=== PATIENT | female | born 1970 | race Caucasian/White ===

== ENCOUNTER 2019-05-17 16:04 | Emergency (ER) | payer OTHER, SELFPAY ==
--- NOTE | ~2019-05-17 | CT_ITS ---
EXAMINATION: CT abdomen pelvis w con DATE: 05/17/2019 18:38 INDICATION: Upper abdominal pain. Nausea. TECHNIQUE: Computed tomography (CT) of the abdomen and pelvis was performed with 100 mL Omnipaque 350 intravenous contrast. Automated exposure control and iterative reconstruction technique were employe d. The dose-length product was 1415.36 mGy-cm. COMPARISON: CT abdomen and pelvis 02/15/2014 FINDINGS: The visualized portions of the lung bases are clear without pneumonia or pleural effusion. The heart size is normal. No pericardial effusion. There is a moderate-sized sliding hiatal hernia. T here are cysts in the liver measuring up to 11 mm. There is mild splenomegaly measuring 13.5 cm, like ly secondary to obesity. The gallbladder, pancreas, and right adrenal gland are normal. There is a 10 mm mass in left adrenal gland measuring soft tissue attenuation. The kidneys are normal. There is a 5.1 cm subserosal fibroid of the uterus. There is diverticulosis of the colon without evidence of div erticulitis. There are no dilated loops of bowel. The appendix is normal. There are no pathologically enlarged lymph nodes. There is no free intraperitoneal fluid. There is thoracic dextroscoliosis and thoracolumbar levoscoliosis. There is mild thoracolumbar spondylosis. There is a chronic compression fracture of L2. IMPRESSION: 1. Moderate-sized sliding hiatal hernia. 2. 10 mm mass in left adrenal gland. In the absence of known malignancy, this finding is likely an ad enoma. Reviewed, dictated and finalized at location A. IMPRESSION: 1. Moderate-sized sliding hiatal hernia. 2. 10 mm mass in left adrenal gland. In the absence of known malignancy, this f inding is likely an adenoma.
[2019-05-17 16:06] VITALS: BP 123/72; PULSE 70; RESP 20; TEMP 36.3; O2SAT 100
[2019-05-17 16:24] LABS: Basophils Absolute Auto 0.1 K/mm3 (0.0-0.1); Basophils Percent Auto 1.1 % (0.2-1.2); Eosinophils Absolute Auto 0.4 K/mm3 (0-0.3); Hematocrit 49.9 % (37.0-47.0); Hemoglobin 16.1 g/dL (12.0-15.0); Immature Granulocyte Absolute 0.03 K/mm3 (0.00-0.031); Immature Granulocyte Percent A 0.3 % (0-0.5); Lymphocytes Absolute Auto 2.08 K/mm3 (0.9-3.2); Mean Corpuscular HGB Conc 32.3 g/dl (32-36); Mean Corpuscular Hemoglobin 29.2 pg (26-34); Mean Corpuscular Volume 90.4 fl (80-100); Mean Platelet Volume 11.7 fl (7.4-10.4); Monocytes Absolute Auto 0.7 K/mm3 (0.1-0.6); Monocytes Percent Auto 7.2 % (2.6-8.5); Neutrophils Absolute Auto 5.8 K/mm3 (1.3-6.7); Neutrophils Percent Auto 64.4 % (45.5-73.1); Platelet Count Result 159 k/mm3 (150-375); Red Blood Count 5.52 M/mm3 (4.2-5.4); Red Cell Distribution Width 14.4 % (11.5-14.5); White Blood Count 9.1 K/mm3 (4.5-10.0)
[2019-05-17 16:38] LABS: Alanine Aminotransferase 17 U/L (4-35); Alkaline Phosphatase 77 U/L (38-126); Aspartate Amino Transferase 32 U/L (14-36); Bilirubin,Total 0.5 mg/dL (0.2-1.3); Blood Urea Nitrogen 19 mg/dL (7-17); Calcium 8.9 mg/dL (8.4-10.2); Carbon Dioxide 25 mmol/L (22-30); Chloride 106 mmol/L (98-107); Estimated CRCL calculation 85 ml/min; Estimated Glomerular Filt Rate 60; Glucose 119 mg/dL (65-105); Lipase 78 U/L (23-300); Potassium 3.4 mmol/L (3.4-5.0); Sodium 140 mmol/L (137-145)
[2019-05-17 17:16] VITALS: BP 150/83; PULSE 85; RESP 16
[2019-05-17 17:37] LABS: Add Urine Microscopic? YES; Appearance Urine Cloudy (Clear); Bacteria Urine Trace /hpf; Bilirubin Urine Negative (Negative); Blood Urine 2+ (Negative); Color Urine Yellow (Yellow); Glucose Urine UA Negative (Negative); Ketones Urine 1+ mg/dL (Negative); Leukocyte Esterase Ur 1+ LEU/UL (Negative); Mucus Urine Rare /lpf; Nitrate Urine Negative (Negative); Protein Urine 1+ mg/dL (Negative); Squamous Epithelial Cell Urine Many /hpf (Few); Urobilinogen Urine Negative mg/dL (<2.0)
--- NOTE | 2019-05-17 18:08 | ED.ABDPAIN ---
HPI - Abdominal Pain General Chief Complaint: Abdominal Pain Stated Complaint: abdominal pain Time Seen by Provider: 05/17/19 17:47 Source: patient Mode of arrival: EMS Limitations: no limitations History of Present Illness HPI narrative: This is a 48 year old female that presents to the ER for upper abdominal pain x 2 hours. Reports sudden onset sharp right upper quadrant abdominal pain after she had eaten a grilled cheese sandwich. Associated with some nausea. Reports the pain has now subsided. Denies chest pain, shortness of breath, vomiting, diarrhea or dysuria. Related Data Home Medications Medication Instructions Recorded Confirmed cetirizine [Zyrtec] 10 mg PO DAILY 05/17/19 montelukast [Singulair] 10 mg PO DAILY 05/17/19 Allergies Allergy/AdvReac Type Severity Reaction Status Date / Time mold Allergy Unknown Verified 09/18/18 10:34 pollen extracts Allergy Unknown Verified 09/18/18 10:34 No Known Allergies Allergy Unverified 02/15/13 11:46 Review of Systems Review of Systems: Narrative: CONSTITUTIONAL: Denies fever CARDIOVASCULAR: Denies chest pain RESPIRATORY: Denies dyspnea. GASTROINTESTINAL: Reports abdominal pain, nausea. Denies vomiting, or diarrhea. GENITOURINARY: Denies dysuria or hematuria. All systems reviewed & are unremarkable except as noted in HPI and below PMFSH Past Medical History Medical History (Updated 05/17/19 @ 19:20 by Ethel Ramos PA-C) History of seasonal allergies Family History Family History (Updated 09/18/18 @ 10:35 by DOCTOR UNKNOWN) Father Diabetes mellitus Social History Social History Smoking status: Former smoker Smoking end date: 02/20/94 Alcohol intake: current Exam Narrative: Exam Narrative: GENERAL: Well-appearing, obese, and in no acute distress. HEAD: Normocephalic, atraumatic. EYES: EOMI. CHEST: Clear to auscultation. No respiratory distress. No wheezes rales or rhonchi HEART: Regular rate and rhythm. No murmur heard. Normal peripheral pulses. ABDOMEN: Soft, nondistended, normal active bowel sounds. Mild tenderness to palpation of the epigastrium and RUQ without guarding EXTREMITIES: Normal range of motion. No edema. SKIN: Warm, dry, no rash. NEURO: No focal deficits. Alert and oriented x3. PSYCH: Normal mood and affect Course Vital Signs Vital signs: Vital Signs Temperature 97.3 F L 05/17/19 16:06 Pulse Rate 70 05/17/19 16:06 Respiratory Rate 20 05/17/19 16:06 Blood Pressure 123/72 05/17/19 16:06 Pulse Oximetry 100 05/17/19 16:06 Temperature 97.3 F L 05/17/19 16:06 Pulse Rate 85 05/17/19 17:16 Respiratory Rate 16 05/17/19 17:16 Blood Pressure 150/83 H 05/17/19 17:16 Pulse Oximetry 100 05/17/19 16:06 MDM - Abdominal Pain MDM Narrative Medical decision making narrative: Patient presents the emergency department for right upper quadrant abdominal pain x2 hours. Pain had resolved upon arrival. She is afebrile and nontoxic-appearing. No leukocytosis on CBC. Patient is hemoconcentrated. Metabolic panel is without acute changes. UA with evidence dehydration, also with white blood cells and 1+ leukoesterase. UA with many squamous epithelial cells though and patient is asymptomatic. Her urine will go for culture. CT abdomen pelvis is without acute findings. It shows a 10 mm mass in the left adrenal gland which is likely an adenoma. Patient and family were updated on case findings. Patient was hydrated and given a dose of antiemetic in the ED with relief. She is to follow-up with primary care doctor. Patient was given warnings to return to the ER Lab Data Attestation: I reviewed the patient's lab results. Result diagrams: 05/17/19 16:17 05/17/19 16:17 Labs: Lab Results 05/17/19 05/17/19 05/17/19 Range/Units 16:17 16:17 17:21 WBC 9.1 (4.5-10.0) K/mm3 RBC 5.52 H (4.2-5.4) M/mm3 Hgb 16.1 H (12.0-15.0) g/dL Hct 49.9 H (37.0-47.0) %
[2019-05-17] MEDS: SODIUM CHLORIDE 0.9% IV 500 ML 999 ML IV CONT (18:53)
[2019-05-17] MEDS: ONDANSETRON INJ 4 MG/2 ML VIAL IV PUSH (19:41)
[2019-05-17 19:46] VITALS: BP 150/75; PULSE 88; RESP 20
== END 2019-05-17 19:46 | disposition home or self-care (01) ==
PROVIDERS: Emergency Medicine; Emergency Provider Emergency Medicine; PCP Nurse Practitioner Adult Health
DX: R10.11 Right upper quadrant pain (principal); D35.02 Benign neoplasm of left adrenal gland; K44.9 Diaphragmatic hernia without obstruction or gangrene
CPT/HCPCS: 36415; 74177; 80053; 81001; 81025; 83690; 85025; 87086; 87088; 96374; 99284; J2405; J7040; Q9967

== ENCOUNTER 2019-07-09 10:44 | Outpatient (CLI) | payer OTHER, SELFPAY ==
--- NOTE | ~2019-07-09 | MR_ITS ---
EXAMINATION: MR abdomen wo/w con INDICATION: Left adrenal mass, upper abdominal pain TECHNIQUE: Coronal SSFSE ARC, WATER:coronal LAVA-FLEX, Coronal 2D FIESTA FatSat, Axial SSFSE BH ARC, Axial 3D DualEcho BH, Axial SSFSE-IR, Axial DWI b=500, Axial 2D FIESTA FatSat, pre and dynamic postco ntrast Axial LAVA ARC, postcontrast Coronal In and Opposed phase LAVA FLEX COMPARISON: CT, 05/17/2019 CONTRAST: Multihance, 20 cc FINDINGS: There are trace pleural effusions. The heart size is normal. There is a moderate-sized slid ing hiatal hernia. Cysts of the liver measure up to 11 mm in the right hepatic lobe. Mild splenomegal y is again noted. The gallbladder, pancreas, kidneys, and right adrenal gland are normal. No left adr enal mass is identified. There are no dilated loops of bowel. There are no pathologically enlarged ab dominal lymph nodes. IMPRESSION: 1. Unremarkable left adrenal gland. 2. Moderate-sized sliding hiatal hernia. Reviewed, dictated and finalized at location A.
[2019-07-09 11:20] LABS: Estimated Glomerular Filt Rate 60
== END 2019-07-09 10:45 | disposition home or self-care (01) ==
LOC: ANHIMG 10:51
PROVIDERS: PCP Nurse Practitioner Adult Health; Visit Provider Nurse Practitioner Adult Health
DX: E27.8 Other specified disorders of adrenal gland (principal); K44.9 Diaphragmatic hernia without obstruction or gangrene
CPT/HCPCS: 36415; 74183; A9577

== ENCOUNTER 2020-01-09 17:18 | Outpatient (CLI) | payer OTHER, SELFPAY ==
--- NOTE | ~2020-01-09 | MM_ITS ---
EXAMINATION: MM screening little BI w que HISTORY: Screening mammogram TECHNIQUE: Craniocaudal and mediolateral oblique 3-D tomosynthesis images were obtained and synthetic 2-D images were generated. CAD analysis was submitted and interpreted. COMPARISON: 07/05/2018 bilateral digital screening mammogram BREAST PARENCHYMAL COMPOSITION: There are scattered areas of fibroglandular density. FINDINGS: Stable small circumscribed low-density opacity situated posteriorly in the outer mid right breast, most consistent with benign intramammary lymph node. There is no evidence of suspicious mass, calcification, or architectural distortion to suggest malignancy in either breast. There has been no suspicious interval change. IMPRESSION: 1. No mammographic evidence of malignancy. 2. Recommend routine screening mammography in one year. BI-RADS Category 2: Benign finding(s). Reviewed, dictated and finalized at location B. 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
== END 2020-01-09 17:19 | disposition home or self-care (01) ==
PROVIDERS: PCP Nurse Practitioner Adult Health; Visit Provider Obstetrics & Gynecology
DX: Z12.31 Encounter for screening mammogram for malignant neoplasm of breast (principal)
CPT/HCPCS: 77063; 77067

== ENCOUNTER 2020-05-05 16:59 | Outpatient (CLI) | payer BC, SELFPAY | END 2020-05-05 17:00 | disposition home or self-care (01) | LOC: ANHCOVIDVC 17:00 | PROVIDERS: PCP Obstetrics & Gynecology | DX: Z23 Encounter for immunization (principal) | CPT/HCPCS: 0001A; 91300 ==

== ENCOUNTER 2020-05-26 16:55 | Outpatient (CLI) | payer BC, SELFPAY | END 2020-05-26 16:56 | disposition home or self-care (01) | LOC: ANHCOVIDVC 16:55 | PROVIDERS: PCP Obstetrics & Gynecology | DX: Z23 Encounter for immunization (principal) | CPT/HCPCS: 0002A; 91300 ==

== ENCOUNTER 2021-02-18 16:28 | Outpatient (CLI) | payer BC, SELFPAY ==
--- NOTE | ~2021-02-18 | MM_ITS ---
EXAMINATION: MM screening [facility] BI w que HISTORY: Screening mammogram TECHNIQUE: Craniocaudal and mediolateral oblique 3-D tomosynthesis images were obtained and synthetic 2-D images were generated. CAD analysis was submitted and interpreted. COMPARISON: 01/09/2020, 07/05/2018 BREAST PARENCHYMAL COMPOSITION: There are scattered areas of fibroglandular density. FINDINGS: There is no evidence of suspicious mass, calcification, or architectural distortion to sugg est malignancy in either breast. There has been no suspicious interval change. IMPRESSION: 1. No mammographic evidence of malignancy. 2. Recommend routine screening mammography in one year. BI-RADS Category 1: Negative Reviewed, dictated and finalized at location A. 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
== END 2021-02-18 16:29 | disposition home or self-care (01) ==
PROVIDERS: PCP Obstetrics & Gynecology; Visit Provider Obstetrics & Gynecology
DX: Z12.31 Encounter for screening mammogram for malignant neoplasm of breast (principal)
CPT/HCPCS: 77063; 77067

== ENCOUNTER 2022-05-25 15:06 | Outpatient (CLI) | payer BC, SELFPAY ==
--- NOTE | ~2022-05-25 | US_ITS ---
EXAMINATION: US pelvic complete w TV DATE: 05/25/2022 16:22 INDICATION: Benign neoplasm of connective and other soft tissue . TECHNIQUE: Multiple transabdominal and transvaginal sonographic images of the pelvis were obtained. COMPARISON: CT abdomen and pelvis 05/17/2019 FINDINGS: TRANSABDOMINAL ULTRASOUND: The uterus measures 10.2 x 6.7 x 7.4 cm. There is no free fluid in the pelvis. TRANSVAGINAL ULTRASOUND: The endometrial complex measures 9 mm in thickness. There are 4.7 cm and 3.6 cm subserosal fibroids. There are nabothian cysts in the cervix. The ovaries are not visualized. IMPRESSION: 1. Uterine fibroids. 2. Ovaries not visualized. Reviewed, dictated and finalized at location A.
--- NOTE | ~2022-05-25 | US_ITS ---
EXAMINATION: US thyroid DATE: 05/25/2022 16:22 INDICATION: Nontoxic goiter TECHNIQUE: Multiple ultrasound images of the thyroid were obtained. COMPARISON: None. FINDINGS: The right thyroid lobe measures 6.1 x 2.3 x 2.0 cm. The left thyroid lobe measures 5.0 x 1.9 x 2.7 c m. 1.8 cm wider than tall solid hypoechoic nodule with smooth margins and without echogenic foci at the inferior right thyroid (TI-RADS 4, moderately suspicious , FNA if >=1.5 cm, annual followup is >= 1 cm). There are additional wider than tall predominately isoechoic masses with with smooth margins a nd without echogenic foci (TI-RADS 3, mildly suspicious , FNA if >=2.5 cm, annual followup is >=1.5 c m) measuring 2.7 cm in the inferior left thyroid lobe, 1.6 cm in the mid left thyroid and 1.4 cm in t he mid right thyroid. There is heterogeneous echogenicity with coarsened echotexture throughout the r emainder of the thyroid with a few additional scattered subcentimeter nodules. IMPRESSION: 1. Multinodular goiter. Recommend ultrasound-guided biopsy of the 1.8 cm TI RADS 4 right thyroid nodu le and the largest 2.7 cm TI RADS 3 left thyroid nodule. Reviewed, dictated and finalized at location A. IMPRESSION: 1. Multinodular goiter. Recommend ultrasound-guided biopsy of the 1.8 cm TI RAD S 4 right thyroid nodule and the largest 2.7 cm TI RADS 3 left thyroid nodule.
== END 2022-05-25 15:07 | disposition home or self-care (01) ==
LOC: ANHIMG 15:15
PROVIDERS: PCP Physician Assistant; Visit Provider Registered Nurse
DX: E06.9 Thyroiditis, unspecified (principal); D25.9 Leiomyoma of uterus, unspecified; E04.2 Nontoxic multinodular goiter
CPT/HCPCS: 76536; 76830; 76856

== ENCOUNTER 2022-07-16 07:13 | Outpatient (CLI) | payer BC, SELFPAY ==
[2022-07-16 08:42] LABS: Cholesterol 172 mg/dL (0-200); HDL Direct 40 mg/dL; Triglycerides 92 mg/dL (<150)
[2022-07-16 08:53] LABS: LDL Cholesterol Direct 106 mg/dL
[2022-07-16 09:25] LABS: Free T4 Free Thyroxine 1.38 ng/mL (0.78-2.19)
[2022-07-22 04:45] LABS: Thyroid Peroxidase Antibodies 227 IU/mL (<9)
[2022-07-22 14:25] LABS: Thyroid Stimulating Immunoglob <89 % baseline (<140)
[2022-07-23 18:26] LABS: Thyrotropin Receptor Antibody <1.00 IU/L (<=2.00)
== END 2022-07-16 07:14 | disposition home or self-care (01) ==
LOC: ANHLAB 07:15
PROVIDERS: PCP Physician Assistant; Visit Provider Internal Medicine
DX: E04.2 Nontoxic multinodular goiter (principal); E66.9 Obesity, unspecified
CPT/HCPCS: 36415; 80061; 83519; 84439; 84443; 84445; 86376

== ENCOUNTER 2022-07-19 16:48 | Outpatient (CLI) | payer BC, SELFPAY | END 2022-07-19 16:49 | disposition home or self-care (01) | LOC: ANHLAB 16:50 | PROVIDERS: PCP Physician Assistant; Visit Provider Physician Assistant | DX: E04.2 Nontoxic multinodular goiter (principal); E66.9 Obesity, unspecified | CPT/HCPCS: 82530 ==

== ENCOUNTER 2022-07-20 16:44 | Outpatient (CLI) | payer BC, SELFPAY ==
--- NOTE | ~2022-07-20 | MM_ITS ---
EXAMINATION: MM screening little BI w que HISTORY: Screening mammogram TECHNIQUE: Craniocaudal and mediolateral oblique 3-D tomosynthesis images were obtained and synthetic 2-D images were generated. CAD analysis was submitted and interpreted. COMPARISON: 02/18/2021, 01/09/2020, 07/05/2018 bilateral screening mammogram examinations BREAST PARENCHYMAL COMPOSITION: There are scattered areas of fibroglandular density. FINDINGS: There is no evidence of suspicious mass, calcification, or architectural distortion to sugg est malignancy in either breast. There has been no suspicious interval change. IMPRESSION: 1. No mammographic evidence of malignancy. 2. Recommend routine screening mammography in one year. BI-RADS Category 1: Negative Reviewed, dictated and finalized at location A.
== END 2022-07-20 16:45 | disposition home or self-care (01) ==
LOC: ANHIMG 16:46
PROVIDERS: PCP Physician Assistant; Visit Provider Obstetrics & Gynecology
DX: Z12.31 Encounter for screening mammogram for malignant neoplasm of breast (principal)
CPT/HCPCS: 77063; 77067

== ENCOUNTER 2022-08-03 17:02 | Outpatient (CLI) | payer BC, SELFPAY ==
--- NOTE | ~2022-08-03 | US_ITS ---
EXAMINATION: 1. US FNA w image guidance 2. US FNA additional DATE: 08/03/22 INDICATION: Multinodular goiter. TECHNIQUE: The procedure and its benefits and risks were discussed with the patient. Risks specifically discusse d included bleeding. The patient verbalized understanding of the risks and agreed to proceed. The nec k was prepped and draped in the usual sterile manner. 1% lidocaine was used for local anesthesia. S ix passes were made with a 25G needle into the lesion in right thyroid lobe under ultrasound guidance . Six passes were made with a 25-gauge needle into the lesion in left thyroid lobe under ultrasound gerardo dance. There were no immediate complications. FINDINGS: Grayscale ultrasound images demonstrate needles advanced into a 1.8 cm nodule in right thyroid lobe f or biopsy. Grayscale ultrasound images demonstrate needles advanced into a 2.7 cm nodule in left thyr oid lobe for biopsy. IMPRESSION: 1. Ultrasound-guided fine needle aspiration of a right thyroid nodule. 2. Ultrasound-guided fine-needle aspiration of a left thyroid nodule. Reviewed, dictated and finalized at location A. IMPRESSION: 1. Ultrasound-guided fine needle aspiration of a right thyroid nodule. 2. Ultrasound-guided fine-needle aspiration of a left thyroid nodule.
== END 2022-08-03 17:03 | disposition home or self-care (01) ==
LOC: ANHIMG 17:04
PROVIDERS: PCP Physician Assistant; Visit Provider Internal Medicine
DX: E04.2 Nontoxic multinodular goiter (principal)
CPT/HCPCS: 10005; 10006; 88173; 88305

== ENCOUNTER 2022-08-25 16:37 | Outpatient (CLI) | payer BC, SELFPAY ==
--- NOTE | ~2022-08-25 | US_ITS ---
EXAMINATION: US soft tissue head and neck DATE: 08/25/2022 17:05 INDICATION: Cervical lymphadenopathy. TECHNIQUE: Multiple grayscale and Doppler ultrasound images of the neck were obtained. COMPARISON: None FINDINGS: There are no pathologically enlarged lymph nodes in the left or right sides of the neck. IMPRESSION: 1. No cervical lymphadenopathy. Reviewed, dictated and finalized at location A.
== END 2022-08-25 16:38 | disposition home or self-care (01) ==
PROVIDERS: PCP Physician Assistant; Visit Provider Internal Medicine
DX: E04.2 Nontoxic multinodular goiter (principal)
CPT/HCPCS: 76536

== ENCOUNTER 2022-11-11 12:37 | Outpatient (CLI) | payer BC, SELFPAY ==
--- NOTE | ~2022-11-11 | US_ITS ---
EXAMINATION: US FNA w image guidance DATE: 11/11/2022 14:50 INDICATION: Right thyroid nodule with prior nondiagnostic biopsy TECHNIQUE: A time-out was performed to verify the patient's name, date of , and procedure to be performed . The procedure and its benefits and risks were discussed with the patient. Risks specifically discus sed included bleeding and infection. The patient understood the risks and agreed to proceed. The neck was prepped and draped in the usual sterile manner. 4 mL 1% lidocaine was used for local anesthesia . 7 passes were made with a 25G needle into the lesion. Appropriate needle location was documented with continuous sonographic guidance. A sterile bandage was applied. There were no immediate compli cations. FINDINGS: Grayscale ultrasound images demonstrate biopsy needles advanced into a 1.6 x 1.6 x 0.9 cm hypoechoic mass at the inferior right thyroid. IMPRESSION: 1. Successful ultrasound-guided fine needle aspiration of the 1.6 cm TI RADS 4 right thyroid nodule with prior nondiagnostic biopsy. Reviewed, dictated and finalized at location A.
== END 2022-11-11 12:38 | disposition home or self-care (01) ==
PROVIDERS: PCP Physician Assistant; Visit Provider Internal Medicine
DX: E04.2 Nontoxic multinodular goiter (principal)
CPT/HCPCS: 10005; 88173; 88305

== ENCOUNTER 2023-05-12 11:59 | Outpatient (CLI) | payer BC, SELFPAY ==
[2023-05-12 13:36] LABS: Alanine Aminotransferase 17 U/L (6-35); Albumin Level 3.8 g/dL (3.5-5.1); Alkaline Phosphatase 70 U/L (38-126); Anion Gap 5 mmol/L (8-16); Aspartate Amino Transferase 26 U/L (14-36); Bilirubin,Total 0.3 mg/dL (0.2-1.3); Blood Urea Nitrogen 17 mg/dL (7-17); Calcium 8.8 mg/dL (8.4-10.2); Carbon Dioxide 25 mmol/L (22-30); Chloride 107 mmol/L (98-107); Estimated Glomerular Filt Rate 59; Glucose 86 mg/dL (65-110); Sodium 137 mmol/L (137-145)
[2023-05-12 15:17] LABS: Free T4 Free Thyroxine 1.09 ng/mL (0.78-2.19); Vitamin D 25 Hydroxy 50.6 ng/mL
[2023-05-12 17:40] LABS: Parathyroid Intact 61.9 pg/mL (7.5-53.5)
[2023-05-14 19:42] LABS: Ionized Calcium 4.8 mg/dL (4.7-5.5)
[2023-05-16 04:18] LABS: Thyroglobulin 0.1 ng/mL (2.8-40.9); Thyroglobulin Antibodies <1 IU/mL (<=1)
== END 2023-05-12 12:00 | disposition home or self-care (01) ==
LOC: ANHLAB 12:01
PROVIDERS: PCP Nurse Practitioner; Visit Provider Internal Medicine
DX: C73 Malignant neoplasm of thyroid gland (principal)
CPT/HCPCS: 36415; 80053; 82306; 82330; 83970; 84432; 84439; 84443; 86800

== ENCOUNTER 2023-05-20 15:55 | Emergency (ER) | payer BC, SELFPAY ==
--- NOTE | 2023-05-20 16:02 | ED.WOUNDLAC ---
HPI - Wound/Laceration General Chief Complaint: Wound/Laceration Stated Complaint: lt thumb laceration Time Seen by Provider: 05/20/23 16:06 Source: patient, RN notes reviewed and old records reviewed Mode of arrival: ambulatory Limitations: no limitations History of Present Illness HPI narrative: 52-year-old female presents to the [facility] with a laceration to her left thumb. States she was using a music box mechanic when she cut the radial aspect of her left thumb. Measures 2.5 cm. Bleeding is controlled. Unknown last Tdap. Full range of motion with sensation intact. Capillary refill under 2 seconds Related Data Home Medications Medication Instructions Recorded Confirmed budesonide-formoterol HFA 80 2 puff inhalation Q12H 12/24/20 12/24/20 mcg-4.5 mcg/actuation aerosol inhaler (Symbicort) fluoxetine 40 mg capsule (Prozac) 40 mg PO DAILY 12/24/20 12/24/20 albuterol sulfate 90 mcg/actuation 1 puff inhalation Q4H PRN 04/13/22 aerosol inhaler cetirizine 10 mg capsule (Zyrtec) 10 mg PO DAILY PRN 04/13/22 prednisone 20 mg tablet mg 05/20/23 05/20/23 Allergies Allergy/AdvReac Type Severity Reaction Status Date / Time mold Allergy Unknown Verified 05/20/23 16:09 pollen extracts Allergy Unknown Verified 05/20/23 16:09 Review of Systems Review of Systems: All systems reviewed & are unremarkable except as noted in HPI and below Constitutional: Constitutional: Reports no additional constitutional complaints Eyes: Eyes: Reports no additional eye complaints ENT: Reports system reviewed and no additional complaints, except as documented Cardiovascular: Cardiovascular: Reports no additional cardiovascular complaints, Denies chest pain and Denies dyspnea Respiratory: Respiratory: Reports no additional respiratory complaints, Denies chest congestion, Denies cough and Denies dyspnea Gastrointestinal: Gastrointestinal: Reports no additional gastrointestinal complaints, Denies abdominal pain, Denies nausea and Denies vomiting Musculoskeletal: Musculoskeletal: Reports no additional musculoskeletal complaints Integumentary/Breasts: Skin/Breast: Reports as per HPI and Reports wounds Neurologic: Reports system reviewed and no additional complaints, except as documented Psychiatric: Psychiatric: Reports no additional psychiatric complaints Allergic/Immunologic: Allergic/Immunologic: Reports no additional allergic/immunologic complaints PMFSH Past Medical History Medical History Adrenal mass, left Asthma Basal cell carcinoma on face Body mass index (BMI) greater than 40 (09/18/18) Diverticulosis Goiter History of diverticulitis History of scoliosis History of seasonal allergies History of uterine fibroid Hx of hiatal hernia Irregular periods Lumbar compression fracture Missed SK (seborrheic keratosis) Spondylosis Uterine fibroid Surgical History Surgical History History of facial surgery to remove carcinoma History of subtotal thyroidectomy Family History Family History Father Diabetes mellitus Social History Social History Smoking status: Former smoker Smoking end date: 02/20/94 Alcohol intake: current Alcohol use details: not often Substance use: never Substance use type: does not use Lack of Transportation: No Lack of Food: Never True Current Housing: I Have Housing Concerned About Future Housing: No Difficulty Paying Gas/Electric Bills: No Difficulty Paying for Meds: No Currently Unemployed: No Education: Associate Degree Difficulty w/ Childcare or Family Care: No Living arrangements: with family Additional living arrangements comments: Mother lives with her Occupation/Education: occupation Gender identity (if verbalized b
[2023-05-20 16:07] VITALS: BP 121/74; PULSE 94; RESP 18; TEMP 36.3; O2SAT 97
[2023-05-20] MEDS: LIDOCAINE HCL 1% LOCAL INJ 2 ML AMPUL 4 ML INFILTRATE (16:17)
[2023-05-20] MEDS: TETANUS,DIPHTHERIA,AC PERTUSSIS ADULT (0.5 ML) BOOSTRIX IM (16:18)
== END 2023-05-20 16:52 | disposition home or self-care (01) ==
PROVIDERS: Emergency Provider Nurse Practitioner; PCP Nurse Practitioner
DX: S61.012A Laceration without foreign body of left thumb without damage to nail, initial encounter (principal); W26.8XXA Contact with other sharp object(s), not elsewhere classified, initial encounter; Z23 Encounter for immunization; Z87.891 Personal history of nicotine dependence; J45.909 Unspecified asthma, uncomplicated; E04.9 Nontoxic goiter, unspecified; Z85.828 Personal history of other malignant neoplasm of skin
CPT/HCPCS: 12001; 90471; 90715; 99212; G0463

== ENCOUNTER 2023-10-19 16:49 | Outpatient (CLI) | payer BC, SELFPAY ==
--- NOTE | ~2023-10-19 | MM_ITS ---
EXAMINATION: MM screening [facility] BI w que HISTORY: Screening mammogram TECHNIQUE: Craniocaudal and mediolateral oblique 3-D tomosynthesis images were obtained and synthetic 2-D images were generated. CAD analysis was submitted and interpreted. COMPARISON: 07/20/2022, 02/18/2021, 01/09/2020 BREAST PARENCHYMAL COMPOSITION:Not Dense. There are scattered areas of fibroglandular density. FINDINGS: Stable left breast intramammary lymph nodes. No suspicious mass, calcification, or architec tural distortion are identified in either breast to suggest malignancy. There has been no suspicious interval change. IMPRESSION: No mammographic evidence of malignancy. Recommend routine screening mammography in one year. BI-RADS Category 2: Benign finding(s). Reviewed, dictated and finalized at [facility].
== END 2023-10-19 16:50 | disposition home or self-care (01) ==
LOC: ANHIMG 16:50
PROVIDERS: Visit Provider Obstetrics & Gynecology
DX: Z12.31 Encounter for screening mammogram for malignant neoplasm of breast (principal)
CPT/HCPCS: 77063; 77067

== ENCOUNTER 2024-03-06 08:09 | Emergency (ER) | payer BC, SELFPAY ==
[2024-03-06 08:25] VITALS: BP 121/76; PULSE 118; RESP 20; TEMP 36.1; O2SAT 98
[2024-03-06 08:30] LABS: EDSTREPNEGPOS1 Negative (Negative)
--- NOTE | 2024-03-06 08:54 | ED_ITS ---
HPI - General Adult General Chief complaint: Upper Respiratory Infection Stated complaint: drainage and sore throat Source: patient Mode of arrival: ambulatory Limitations: no limitations History of Present Illness HPI narrative: Patient presents for evaluation of sick symptoms. Symptom onset in the middle of January 2024. She initially had a cough and nasal drainage. She had a telemedicine visit and was given prednisone and doxycycline. Her symptoms improved. She now has recurrence of her symptoms, as well as a sore throat, chills, generalized body aches, nausea and vomiting. Most of her symptoms are mild however she is most concerned about her sore throat. She has taken tylenol and claritin for her symptoms. She does not smoke. Related Data Home Medications ?Medication ?Instructions ?Recorded ?Confirmed ?Last Taken ?Type albuterol sulfate 90 mcg/actuation 1 puff inhalation Q4H PRN 04/13/22 Unknown History aerosol inhaler cetirizine 10 mg capsule (Zyrtec) 10 mg PO DAILY PRN 04/13/22 Unknown History fluticasone propionate 50 1 inh inhalation Q12H 08/22/23 Unknown History mcg/actuation blister powder for inhalation Allergies Allergy/AdvReac Type Severity Reaction Status Date / Time mold Allergy Mild Hives Verified 03/06/24 08:17 pollen extracts Allergy Mild Hives Verified 03/06/24 08:17 Review of Systems Review of Systems: CONSTITUTIONAL: Reports chills. Denies fever or sweats. EYES: Denies visual changes, redness, or discharge. ENT: Reports sinus congestion, yellow nasal drainage, and sore throat CARDIOVASCULAR: Denies chest pain, palpitations, or edema. RESPIRATORY: Reports cough. Denies SOB GASTROINTESTINAL: Reports nausea and vomiting. Denies abdominal pain or diarrhea. GENITOURINARY: Denies dysuria or hematuria. SKIN: Denies rash or itching. MUSCULOSKELETAL: Reports generalized body aches NEUROLOGIC: Denies headache, numbness, dizziness, or weakness. PSYCHIATRIC: Denies anxiety or depression. [facility] Past Medical History Medical History Basal cell carcinoma on face SK (seborrheic keratosis) Irregular periods Body mass index (BMI) greater than 40 (09/18/18) Goiter Uterine fibroid Spondylosis History of scoliosis History of diverticulitis Lumbar compression fracture Adrenal mass, left Hx of hiatal hernia History of uterine fibroid Asthma Diverticulosis Missed History of seasonal allergies Surgical History Surgical History History of subtotal thyroidectomy History of facial surgery to remove carcinoma Family History Family History Father Diabetes mellitus Social History Social History Smoking status: Former smoker Smoking end date: 02/20/94 Alcohol intake: current Alcohol use details: not often Substance use: never Substance use type: does not use Lack of Transportation: No Lack of Food: Never True Current Housing: I Have Housing Concerned About Future Housing: No Difficulty Paying Gas/Electric Bills: No Difficulty Paying for Meds: No Currently Unemployed: No Education: Associate Degree Difficulty w/ Childcare or Family Care: No Living arrangements: with family Additional living arrangements comments: Mother lives with her Occupation/Education: occupation Gender identity (if verbalized by the patient): Female Sexual Orientation (if Verbalized by the Patient): Straight or Heterosexual Spiritual care concerns: No Exam Narrative: GENERAL: Well-appearing, well-nourished, and in no acute distress. HEAD: Normocephalic, atraumatic. EYES: PERRLA and EOMI. ENT: Thick yellow nasal drainage. Mucous membranes moist. Oropharynx without tonsillar hypertrophy exudate or other lesions. There is posterior pharyngeal erythema. Bilateral TMs pearly garcia nonbulging NECK: Supple. No adenopathy or masses. No carotid bruits or JVD CHEST: Clear to auscultation. No respiratory distress. No wheezes rales or rhonchi HEART: Regular rate and rhythm. No murmur heard. Normal peripheral pulses. ABDOMEN: Soft, nontender, nondistended, normal active bowel sounds. EXTREMITIES: Normal range of motion. No edema. SKIN: Warm, dry, no rash. NEURO: No focal deficits. Alert and oriented x3. PSYCH: Normal mood and affect. Course Course Emergency Course: This is a 53-year-old female who presented for evaluation of sick symptoms. Rapid strep negative. She meets criteria for bacterial sinusitis based upon duration of time in which she has symptomatic and mucopurulent nature of her discharge. Will dc with augmentin. Follow up with primary provider. Go to the ER for worsening symptoms. Pt in agreement with plan of care. Level of Care: Express Care Visit Vital Signs Vital signs: Vital Signs Temperature 36.1 C L 03/06/24 08:25 Pulse Rate 118 H 03/06/24 08:25 Respiratory Rate 20 03/06/24 08:25 Blood Pressure 121/76 03/06/24 08:25 Pulse Oximetry 98 03/06/24 08:25 Oxygen Delivery Room Air 03/06/24 08:25 Temperature 36.1 C L 03/06/24 08:25 Pulse Rate 118 H 03/06/24 08:25 Respiratory Rate 20 03/06/24 08:25 Blood Pressure 121/76 03/06/24 08:25 Pulse Oximetry 98 03/06/24 08:25 Oxygen Delivery Room Air 03/06/24 08:25 Medical Decision Making Vital Signs Vital Signs: Vital Signs Temperature 36.1 C L 03/06/24 08:25 Pulse Rate 118 H 03/06/24 08:25 Respiratory Rate 20 03/06/24 08:25 Blood Pressure 121/76 03/06/24 08:25 Pulse Oximetry 98 03/06/24 08:25 Oxygen Delivery Room Air 03/06/24 08:25 Temperature 36.1 C L 03/06/24 08:25 Pulse Rate 118 H 03/06/24 08:25 Respiratory Rate 20 03/06/24 08:25 Blood Pressure 121/76 03/06/24 08:25 Pulse Oximetry 98 03/06/24 08:25 Oxygen Delivery Room Air 03/06/24 08:25 Lab Data Labs: Lab Results 03/06/24 Range/Units 08:28 POC Grp A Strep Screen Negative (Negative) Discharge Plan Discharge Clinical Impression: Sinusitis Patient Disposition: Home, Self-Care Condition: Stable Instructions: Antibiotic Form, Sinusitis (ED) Patient Language: Andorran Prescriptions: New amoxicillin-pot clavulanate 875-125 mg tablet 1 tablet PO Q12H Qty: 20 0RF No Action albuterol sulfate 90 mcg/actuation HFA aerosol inhaler 1 puff inhalation Q4H PRN Zyrtec 10 mg capsule 10 mg PO DAILY PRN norethindrone (contraceptive) 0.35 mg tablet 0.35 mg PO DAILY Qty: 84 4RF fluticasone propionate 50 mcg/actuation blister with device 1 inh inhalation Q12H levothyroxine [Synthroid] 200 mcg tablet 200 mcg PO DAILY Qty: 90 3RF levothyroxine [Synthroid] 25 mcg tablet 25 mcg PO DAILY Qty: 90 3RF Follow-up/Referrals: Kami Mnaning [Other] Stand Alone Forms: Work/School Release IP Time of Disposition: 08:41
== END 2024-03-06 08:42 | disposition home or self-care (01) ==
PROVIDERS: Emergency Provider Nurse Practitioner
DX: J32.9 Chronic sinusitis, unspecified (principal); Z87.891 Personal history of nicotine dependence; J45.909 Unspecified asthma, uncomplicated; E04.9 Nontoxic goiter, unspecified; M41.9 Scoliosis, unspecified; Z85.828 Personal history of other malignant neoplasm of skin
CPT/HCPCS: 87081; 87880; 99213; G0463

== ENCOUNTER 2024-03-09 08:24 | Outpatient (CLI) | payer BC, SELFPAY ==
[2024-03-09 09:31] LABS: Basophils Absolute Auto 0.1 K/mm3 (0.0-0.1); Basophils Percent Auto 1.2 % (0.2-1.2); Eosinophils Absolute Auto 0.3 K/mm3 (0-0.3); Eosinophils Percent Auto 4.8 % (0-4.4); Hematocrit 40.9 % (37.0-47.0); Hemoglobin 12.2 g/dL (12.0-15.0); Immature Granulocyte Absolute 0.02 K/mm3 (0.00-0.031); Immature Granulocyte Percent A 0.3 % (0-0.5); Lymphocytes Absolute Auto 1.05 K/mm3 (0.9-3.2); Lymphocytes Percent Auto 16.3 % (18.3-44.2); Mean Corpuscular HGB Conc 29.8 g/dl (32-36); Mean Corpuscular Hemoglobin 24.3 pg (26-34); Mean Corpuscular Volume 81.3 fl (80-100); Mean Platelet Volume 10.4 fl (7.4-10.4); Monocytes Absolute Auto 0.4 K/mm3 (0.1-0.6); Monocytes Percent Auto 6.2 % (2.6-8.5); Neutrophils Absolute Auto 4.6 K/mm3 (1.3-6.7); Neutrophils Percent Auto 71.2 % (45.5-73.1); Platelet Count Result 338 k/mm3 (150-375); Red Blood Count 5.03 M/mm3 (4.2-5.4); Red Cell Distribution Width 15.9 % (11.5-14.5); White Blood Count 6.4 K/mm3 (4.5-10.0)
[2024-03-09 09:43] LABS: Iron 34 ug/dL (37-170)
[2024-03-09 09:47] LABS: Alanine Aminotransferase 10 U/L (6-35); Albumin Level 3.7 g/dL (3.5-5.1); Alkaline Phosphatase 71 U/L (38-126); Anion Gap 6 mmol/L (4-12); Aspartate Amino Transferase 18 U/L (14-36); Bilirubin,Total 0.6 mg/dL (0.2-1.3); Blood Urea Nitrogen 17 mg/dL (7-17); Calcium 8.4 mg/dL (8.4-10.2); Carbon Dioxide 29 mmol/L (22-30); Chloride 106 mmol/L (98-107); Cholesterol 167 mg/dL (0-200); Estimated Glomerular Filt Rate > 60; Glucose 88 mg/dL (65-110); HDL Direct 34 mg/dL; Potassium 4.2 mmol/L (3.4-5.0); Sodium 141 mmol/L (137-145); Triglycerides 93 mg/dL (<150)
[2024-03-09 09:57] LABS: LDL Cholesterol Direct 98 mg/dL
[2024-03-09 10:01] LABS: Free T4 Free Thyroxine 2.39 ng/dL (0.78-2.19); Percent Iron Saturation 9 % (20-50)
[2024-03-09 10:16] LABS: Thyroid Stimulating Hormone 0.633 uIU/mL (0.465-4.680)
[2024-03-09 10:19] LABS: Ferritin 6.56 ng/mL (11.1-264)
[2024-03-13 10:48] LABS: Thyroglobulin <0.1 ng/mL; Thyroglobulin Antibodies <1 IU/mL (< or = 1)
--- OUTSIDE RECORDS SUMMARY | 2024-03-14 08:36 | XMS_ITS | Clinical Summary ---
Author Organization [facility] Address [address] [place] [address] Care Team Providers Care Template Layout Worker Name Role Phone Kaye Pendleton PA-C Primary Care Provider [phone] Source Comments [facility],non-owned Affiliates and Associated Physician Practices is amultiple site organization consisting of ambulatory clinics and hospital sitesin [place], [place], [place] and [place]. This disclosure is being madepursuant to the Care Everywhere program and may not contain all information available regarding this patient. Last updated 17.[facility] Allergies No known active allergies Medications * Be aware that medications may not be up to date on this document. Alwaysverify current medications with the patient. Medication Sig Dispensed Refills Start Date End Date Status FLUoxetine (PROzac) 40 MG capsule Take 1 (one) capsule by mouth once daily 03/10/2022 Active fluticasone propionate (Flonase) 50 MCG/ACT nasal spray Bend 1 (one) spray into each nostril once daily 06/03/2022 Active norethindrone (Ortho Micronor; Nor-Qd; Carlie; Eulalia; Lucía-Be; Thi; Jolivette) 0.35 MG tablet Take 1 (one) tablet by mouth as directed 08/31/2022 Active ferrous sulfate 325 (65 FE) MG tablet Take 1 (one) tablet by mouth 2 times daily Active albuterol (Proventil;Ventolin) (2.5 MG/3ML) 0.083% nebulizer solution Inhale 2.5 (two and one-half) mg by mouth as directed Active ibuprofen (Motrin) 600 MG tabletIndications:Mu ltiple thyroid nodules Take 1 (one) tablet by mouth every 6 hours 20 tablet 03/17/2023 Active levothyroxine (Synthroid) 200 MCG tablet Take 1 (one) tablet by mouth daily before breakfast Active Synthroid 25 MCG tablet Take 1 (one) tablet by mouth once daily 08/22/2023 Active cetirizine (ZyrTEC) 10 MG tablet Take 1 (one) tablet by mouth once daily 07/06/2023 Active Active Problems Problem Noted Date Diagnosed Date Thyroid cancer 04/19/2023 Multiple thyroid nodules 09/16/2022 Immunizations Name Administration Dates Next Due COVID PFIZER 12+YR 30MCG/0.3mL 11/30/2022 Covid Coaxis primary monoval ent 12+ yr 0.3mL Purple cap 02/23/2021,05/26/2020,05/05/2020 FLU VACCINE QUAD IIV4 SPLIT 0.25 ML IM 01/04/2019 FLU VACCINE TRI IIV3 SPLIT I M (FLUVIRIN) 11/19/2013 HIB-PRP-OMP 3 DOSE 02/25/2019 INFLUENZA VACCINE 01/21/2022 INFLUENZA VACCINE, CELL CULT URE, QUADR. (FLUCELVAX QUADRIVALENT; 6MO+) (CCIIV4) 11/30/2022 INFLUENZA VACCINE, QUADR. (A FLURIA, FLUZONE QUADRIVALENT; 6MO+) (IIV4) 01/03/2019 INFLUENZA VACCINE, QUADR. (F LUZONE; FLULAVAL; FLUARIX; AFLURIA QUADRIVALENT; 6MO+), 0.5 ML (IIV4) 01/21/2022,01/21/2021,11/26/2019,2017 PNEUMOCOCCAL PPSV23 02/21/2019 PNEUMOCOCCAL PPV VACCINE 02/25/2019 [employer] BIVALENT 5Y-11Y 10MCG/0.2ML 01/21/2022 Family History Medical History Relation Name Comments Diabetes - Type 1 Father Other - Pulmonary/Lung Maternal Grandmother emphysema Thyroid Disease Maternal Grandmother Cancer Mother appendix Diabetes - Type 1 Paternal Great-Grandmother Relation Name Status Comments Father Maternal Grandmother Mother Alive Paternal Great-Grandmother Social History Tobacco Use Types Packs/Day Years Used Date Smoking Tobacco: Never Smokeless Tobacco: Never Tobacco Cessation:Counseling Given: Not Answered Alcohol Use Standard Drinks/Week Comments Yes 0 (1 standard drink = 0.6 oz pur e alcohol) occ AUDIT-C Answer Date Recorded Q1: How often do you have a drink containing alcohol? Never 03/16/2023 Q2: How many drinks containi ng alcohol do you have on a typical day when you are drinking? Patient does not drink Q3: How often do you have si x or more drinks on one occasion? Never 03/16/2023 Sex and Gender Information Value Date Recorded Sex Assigned at Not on file Gender Identity Not on file Sexual Orientation Not on file Last Filed Vital Signs Vital Sign Reading Time Taken Comments Blood Pressure 130/83 09/27/2023 3:16 PM CDT Pulse 77 09/27/2023 3:16 PM CDT Temperature 36.8 ??C (98.2 ??F) 03/17/2023 7:56 AM CS T Respiratory Rate 18 03/17/2023 7:56 AM ENVIRONMENTAL CONSERVATION OFFICER Oxygen Saturation 98% 09/27/2023 3:16 PM CDT Inhaled Oxygen Concentration - - Weight 149.2 kg (329 lb) 09/27/2023 3:16 PM CDT Height 172.7 cm (5' 8 ) 09/27/2023 3:16 PM CDT Body Mass Index 50.02 09/27/2023 3:16 PM CDT Plan of Treatment Upcoming Encounters Date Type Department Care Team (Late st Contact Info) Description 10/02/2024 12:45 PM CDT Office Visit [facility] - ENT [address] [place] [phone] Loki John MD [address] [place] [address] [place] [id number] Health Maintenance Due Date Last Done Comments COLOGUARD (AGES 45-75) - COLON CA SCREENING 1972 COLON MONITORING 1972 COLONOSCOPY - COLON CA SCREENING 1972 CT COLONOGRAPHY - COLON CA SCREENING 1972 Colorectal Cancer Screening 1972 FIT - COLON CA SCREENING 1972 FLEX SIG - COLON CA SCREENING 1972 LIPID TESTING 1972 MAMMOGRAM 1972 PAP SMEAR 1972 HIV SCREENING 10/18/1987 HEPATITIS C SCREENING 10/13/1990 DTAP/TDAP/TD VACCINES (1 - Tdap) 10/18/1991 HEPATITIS B VACCINE (1 of 3 - 19+ 3-dose series) 10/18/1991 PNEUMOCOCCAL VACCINE 50+ (2 of 2 - PCV) 2022 02/25/2019, 02/21/2019 ZOSTER VACCINE (1 of 2) 2022 COVID-19 VACCINE (6 - season) 2023 11/30/2022, 01/21/2022, 01/21/2022, Additional history exists INFLUENZA VACCINE (#1) 2023 3, 01/21/2022, 01/21/2022, Additional history exists DEPRESSION SCREENING 02/21/2024 SCREENING FOR DIABETES 03/06/2026 03/06/2023 HIB VACCINE Aged Out 02/25/2019 No longer eligi ble based on patient's age to complete this topic PNEUMOCOCCAL VACCINE Aged Out 02/25/2019, 02/21/19 20 No longer eligible based on patient's age to complete this topic HPV VACCINE Aged Out No longer eligi ble based on patient's age to complete this topic MENINGOCOCCAL (Group B) VACCINE Aged Out No longer eligible based on patient's age to complete this topic MENINGOCOCCAL VACCINE Aged Out No vasyl naga eligible based on patient's age to complete this topic Procedures Procedure Name Priority Date/Time Associated Diagnosis Comments BASIC METABOLIC PANEL (CALCIUM TOTAL) Routine 03/06/2023 12:41 PM ENVIRONMENTAL CONSERVATION OFFICER Pre-op evaluation from Last 3 Months or Most Recently Relevant to Health Maintenance Results * (ABNORMAL) BASIC METABOLIC PANEL (CALCIUM TOTAL) (03/06/2023 12:41 PM ENVIRONMENTAL CONSERVATION OFFICER) BUN 16 7 - 26 mg/dL 03/06/2023 1:27 PM ENVIRONMENTAL CONSERVATION OFFICER [facility] Creatinine 0.91 0.56 - 0.96 mg/dL 03/06/2023 1:27 PM ENVIRONMENTAL CONSERVATION OFFICER [facility] Sodium 140 136 - 145 mmol/L 03/06/2023 1:27 PM ENVIRONMENTAL CONSERVATION OFFICER [facility] Potassium 4.1 3.5 - 4.5 mmol/L 03/06/2023 1:27 PM [facility] Chloride 108(H) 98 - 107 mmol/L 03/06/2023 1:27 PM [facility] CO2 25 22 - 29 mmol/L 03/06/2023 1:27 PM [facility] Glucose 82 70 - 115 mg/dL 03/06/2023 1:27 PM [facility] Calcium 9.1 8.4 - 10.2 mg/dL 03/06/2023 1:27 PM [facility] Anion Gap 7 6 - 16 03/06/2023 1:27 PM [facility] BUN/Creatinine Ratio 18 7 - 23 03/06/2023 1:27 PM [facility] Osmolality Calculated 290 275 - 295 mOsm/kg 03/06/2023 1:27 PM [facility] eGFR by CKD-EPI 77(L) >=90 mL/min/1.7 3 m2 03/06/2023 1:27 PM [facility] Blood BLOOD SPECIMEN / Unknown Lab Venipuncture / Unknown 03/06/2023 12:41 PM ENVIRONMENTAL CONSERVATION OFFICER 03/06/2023 12:58 PM [facility] Divya Carter CLOTH CHECKER-FOREST LANDSCAPE ECOLOGY PROFESSOR LAB - PEE LANDRY ORDERABLES [facility] [address] [place] [address], [facility] [phone] from Last 3 Months or Most Recently Relevant to Health Maintenance Advance Directives * Full Code (Latest Code Status on File) Date Activated Date Inactivated Comments 03/16/2023 1:17 PM 03/17/2023 11:57 AM Care Teams Template Layout Worker Relationship Specialty Start Date End Date Kaye Pendleton PA-C [address] [place] [address] PCP - General Physician Dried Fruit Washer 09/08/22
--- OUTSIDE RECORDS SUMMARY | 2024-03-14 08:37 | XMS_ITS | Clinical Summary ---
Author Organization [facility] Address [address] [place] [id number] Care Team Providers Care Inspector Eyeglass Frames Name Role Phone Kami Manning NP Primary Care Provider [phone] Tika FUNG MD PhD, Russ Smith Unavailable Jaylen Donnelly MD Unavailable [phone] Allergies No known active allergies Medications FLUoxetine (PROzac) 40 mg capsule Take 1 capsule (40 mg total) by mouth daily 3 Active norethindrone (MICRONOR) 0.35 mg tablet Take 1 tablet (0.35 mg total) by mouth daily 3 Active fluticasone propion-salmete roL (ADVAIR DISKUS) 250-50 mcg/dose diskus inhaler Inhale 1 puff 2 (two) times a day Rinse mouth with water after use. Do not swallow. 1 each 5 4 Active Synthroid 200 mcg tablet 200 MCG ORALLY DAILY 4 Active albuterol HFA (PROVENTIL HFA,VENTOLIN HFA,PROAIR HFA) 90 mcg/actuation inhaler Inhale 2 puffs every 4 (four) hours as needed for wheezing 1 each 5 4 Active levothyroxine (SYNTHROID) 150 mcg tablet Take 1 tablet (150 mcg total) by mouth daily 4 03/08/19 25 Discontinue d(Alternate therapy) cetirizine (ZyrTEC) 10 mg tablet TAKE 1 TABLET BY MOUTH EVERY DAY 90 tablet 1 4 03/04/19 25 Discontinue d(Alternate therapy) doxycycline (doxycycline hyclate) 100 mg capsule Take 1 tablet/capsu le (100 mg total) by mouth 2 (two) times a day for 7 days 14 tablet/capsu le 4 02/13/20 24 Active Problems Problem Noted Date Diagnosed Date Routine medical exam 03/08/2024 Assessment & Plan (03/08/2024 8:37 AM JAVA DEVELOPER ARCHITECT): CBC, CMP, lipid panel ordered. Mammogram ordered. Patient to sign release form to obtain last Pap results from her ENGINEERING AND DEVELOPMENT DIRECTOR. Cologuard completed 08/2023 repeat in 3 years. Vaccinations: Due for COVID, Shingrix,and Flu vaccines. Repeat wellness exam in one year. Morbid obesity with BMI of 50.0-59.9, adult 02/20 Assessment & Plan (03/08/2024 8:39 AM JAVA DEVELOPER ARCHITECT): Chronic, improving. Patient to continue exercising daily and making diet changes, limiting fatty foods and processed foods. Follow up in 6 months. Papillary thyroid carcinoma 07/03/2023 Mild intermittent asthma without complication Assessment & Plan (03/08/2024 8:37 AM JAVA DEVELOPER ARCHITECT): Chronic, controlled. Patient to restart Symbicort BID and continue albuterol inhaler PRN. Follow up in 6 months. Assessment & Plan (05/04/2023 4:52 PM CDT): Chronic, controlled. Patient to restart Symbicort BID and continue albuterol inhaler PRN. Follow up in 6 months. Anxiety and depression 05/04/2023 Assessment & Plan (03/08/2024 8:33 AM JAVA DEVELOPER ARCHITECT): Chronic, controlled. Patient to continue on fluoxetine 40 mg daily. Follow up in 6 months. Assessment & Plan (05/04/2023 4:40 PM CDT): Chronic, controlled. Patient to continue on fluoxetine 40 mg daily. Follow up in 6 months. Acquired hypothyroidism 05/04/2023 Assessment & Plan (03/08/2024 8:34 AM JAVA DEVELOPER ARCHITECT): Chronic, patient following with Dr. Allison endocrinology. Currently taking Synthroid 200 mcg daily. Assessment & Plan (05/04/2023 4:40 PM CDT): Chronic, improving patient following with Dr. Allison endocrinology. Currently taking levothyroxine 150 mcg daily. History of thyroid cancer 05/04/2023 Assessment & Plan (03/08/2024 8:32 AM JAVA DEVELOPER ARCHITECT): Thyroidectomy completed in 02/2023. Currently following with Dr. Alvaro MCRAE. Assessment & Plan (05/04/2023 4:56 PM CDT): Thyroidectomy completed in 02/2023. Currently following with Dr. Alvaro MCRAE. History of skin cancer 05/04/2023 Overview (05/04/2023): History of basal cell of left cheek. Patient currently following with [facility] for yearly skin checks. Assessment & Plan (03/08/2024 8:33 AM JAVA DEVELOPER ARCHITECT): History of basal cell of left cheek. Patient currently following with [facility] for yearly skin checks. Assessment & Plan (05/04/2023 4:55 PM CDT): History of basal cell of left cheek. Patient currently following with [facility] for yearly skin checks. Iron deficiency anemia 05/04/2023 Assessment & Plan (03/08/2024 8:38 AM JAVA DEVELOPER ARCHITECT): Chronic, stable patient unable to tolerate oral supplements. Patient to have CBC, iron profile, and ferratin level redrawn. Follow up in 6 months. Assessment & Plan (05/04/2023 4:54 PM CDT): Chronic, stable patient unable to tolerate oral supplements. Patient to have CBC, iron profile, and ferratin level redrawn in 2 months. Encounters Date Type Department Care Team Description 03/04/2024 4:30 PM JAVA DEVELOPER ARCHITECT Office Visit [facility] [address] [facility] [address] [place] [address] aKmi Manning, CHRISTOPHER Routine medical exam (Primary Dx); Iron deficiency anemia, unspecified iron deficiency anemia type; Acquired hypothyroidism; Anxiety and depression; History of skin cancer; History of thyroid cancer; Mild intermittent asthma without complication; Encounter for screening mammogram for malignant neoplasm of breast; Morbid obesity with BMI of 50.0-59.9, adult (HCC) 02/06/2024 5:10 AM JAVA DEVELOPER ARCHITECT E-Visit [facility] [address] [place] [phone] Mackenzie Boo NP Your Medications 02/06/2024 Patient Self-Triage [facility] Physicians [facility] [place] [address] Mychart, Generic Provider from Last 3 Months Immunizations Name Administration Dates Next Due COVID-19 mRNA (FunnelFire) 0.3 m L (30 mcg) vaccine (12 years and up) 12/08/2023,11/30/2022 Hib (PRP-OMP) 02/25/2019 Influenza, Quadrivalent, Subha l Culture-based MDCK, Preservative Free, Antibiotic Free, Intramuscular 11/30/2022 Influenza, Quadrivalent, Spl it, Intramuscular 01/03/2019 Influenza, Quadrivalent, Spl it, Preservative Free, Intramuscular 01/21/2022,01/21/2021,11/26/2019,12/11 Influenza, Trivalent, IM (MDV) 11/19/2013 Influenza, Trivalent, Preser vative Free, Intramuscular 12/08/2023 Influenza, Unspecified 01/21/2022 Pfizer Sars-Cov-2 Bivalent V accination (12+ YRS) 01/21/2022 Pfizer Sars-Cov-2 Bivalent V accination (5-11 YRS) 01/21/2022 Pneumococcal Polysaccharide PPV23 02/25/2019,03/2019 Tdap 05/20/2023 Surgical History Surgery Date Site/Laterality Comments THYROID SURGERY Medical History Medical History Date Comments Cancer (CMS/HCC) (HCC) Thyroid disease Family History Medical History Relation Name Comments Diabetes Father Cancer Mother Relation Name Status Comments Father (Age 49) Mother Alive Social History Tobacco Use Types Packs/Day Years Used Date Smoking Tobacco: Never AUDIT-C Answer Date Recorded Q1: How often do you have a drink containing alc ohol? Monthly or less 05/04/2023 Average Number of Drinks Not on file 024 Frequency of Binge Drinking Not on file 04/20 PHQ-2 Answer Date Recorded PHQ-2 Total Score (If total score is 3 or more points, staff should administer the PHQ-9) 1 05/04/2023 Comments Unknown Sex and Gender Information Value Date Recorded Sex Assigned at Not on file Legal Sex Female 2:15 AM JAVA DEVELOPER ARCHITECT Gender Identity Not on file Sexual Orientation Not on file Obstetrics History Last Filed Vital Signs Vital Sign Reading Time Taken Comments Blood Pressure 124/84 03/04/2024 3:43 PM JAVA DEVELOPER ARCHITECT Pulse 97 03/04/2024 3:43 PM JAVA DEVELOPER ARCHITECT Temperature 36.6 ??C (97.8 ??F) 03/04/2024 3:43 PM CS T Respiratory Rate 20 03/04/2024 3:43 PM JAVA DEVELOPER ARCHITECT Oxygen Saturation 98% 03/04/2024 3:43 PM JAVA DEVELOPER ARCHITECT Inhaled Oxygen Concentration - - Weight 140.7 kg (310 lb 1.6 oz) 03/04/2024 3:43 PM JAVA DEVELOPER ARCHITECT Height 166.4 cm (5' 5.51 ) 03/04/2024 3:43 PM CS T Body Mass Index 50.8 03/04/2024 3:43 PM JAVA DEVELOPER ARCHITECT Plan of Treatment Health Maintenance Due Date Last Done Comments Cervical Cancer Screening 1972 Hepatitis C Screening 1972 Hepatitis B Screening 1990 Zoster Vaccine (1 of 2) 10/18/1991 Depression Screening 05/03/2024 05/04/2023 Breast Cancer Screening-Mammogram 12/18/2024 024 Regular Well Visit/Exam 18-64 03/04/2025 03/04/2024 DTaP/Tdap/Td Vaccine (2 - Td or Tdap) 05/19/2033 05/20/2023 Colon Cancer Screening-Colonoscopy 09/04/2033 09/05/2023 Pneumococcal vaccine <65 Discontinued 02/25/2019, 03/2019 Covid-19 Vaccine Discontinued 12/08/2023, 12/2022, 01/21/2022, Additional history exists Influenza Vaccine Completed 12/08/2023, , 01/21/2022, Additional history exists Insurance [employer] [place] [employer] [place] Care Teams Inspector Eyeglass Frames Relationship Specialty Start Date End Date Kami Manning OIL HEATER INSTALLER [address] [place] [id number] PCP - General Family Medicine 05/04/23 Russ Villela III, MD PhD [address] [place] [id number] Radiation Oncologist Radiation Oncology 07/06/23 Jaylen Donnelly MD [address] [address] Consulting Physician Endocrinology Diabetes & Metabolism 07/06/23
--- OUTSIDE RECORDS SUMMARY | 2024-03-14 08:37 | XMS_ITS | Patient Health Summary ---
Author Organization [facility] Address [address] [place] [address] Care Team Providers Care Assorter Name Role Phone Kaye Pendleton PA-C Primary Care Provider [phone] Note from [facility],non-owned Affiliates and Associated Physician Practices is amultiple site organization consisting of ambulatory clinics and hospital sitesin [place], [place], [place] and [place]. This disclosure is being madepursuant to the Care Everywhere program and may not contain all information available regarding this patient. Last updated 17.[facility] Allergies No known active allergies Medications * Be aware that medications may not be up to date on this document. Alwaysverify current medications with the patient. * FLUoxetine (PROzac) 40 MG capsule(Started 03/10/2022) Take 1 (one) capsule by mouth once daily * fluticasone propionate (Flonase) 50 MCG/ACT nasal spray(Started 06/03/2022) [place] 1 (one) spray into each nostril once daily * norethindrone (Ortho Micronor; Nor-Qd; Carlie; Eulalia; Lucía-Be; Thi; Jolivette) 0.35 MG tablet(Started 08/31/2022) Take 1 (one) tablet by mouth as directed * ferrous sulfate 325 (65 FE) MG tablet Take 1 (one) tablet by mouth 2 times daily * albuterol (Proventil;Ventolin) (2.5 MG/3ML) 0.083% nebulizer solution Inhale 2.5 (two and one-half) mg by mouth as directed * ibuprofen (Motrin) 600 MG tablet(Started 03/17/2023) Take 1 (one) tablet by mouth every 6 hours * levothyroxine (Synthroid) 200 MCG tablet Take 1 (one) tablet by mouth daily before breakfast * Synthroid 25 MCG tablet(Started 08/22/2023) Take 1 (one) tablet by mouth once daily * cetirizine (ZyrTEC) 10 MG tablet(Started 07/06/2023) Take 1 (one) tablet by mouth once daily Active Problems Problem Noted Date Diagnosed Date Thyroid cancer 04/19/2023 Multiple thyroid nodules 09/16/2022 Immunizations * COVID PFIZER 12+YR 30MCG/0.3mL(Given 11/30/2022) * Covid Pfizer primary monovalent 12+ yr 0.3mL Purple cap(Given 02/23/2021, 05/26/2020, 05/05/2020) * FLU VACCINE QUAD IIV4 SPLIT 0.25 ML IM(Given 01/04/2019) * FLU VACCINE TRI IIV3 SPLIT IM (FLUVIRIN)(Given 11/19/2013) * HIB-PRP-OMP 3 DOSE(Given 02/25/2019) * INFLUENZA VACCINE(Given 01/21/2022) * INFLUENZA VACCINE, CELL CULTURE, QUADR. (FLUCELVAX QUADRIVALENT; 6MO+) (CCIIV4)(Given 11/30/2022) * INFLUENZA VACCINE, QUADR. (AFLURIA, FLUZONE QUADRIVALENT; 6MO+) (IIV4)(Given 01/03/2019) * INFLUENZA VACCINE, QUADR. (FLUZONE; FLULAVAL; FLUARIX; AFLURIA QUADRIVALENT; 6MO+), 0.5 ML (IIV4)(Given 01/21/2022, 01/21/2021, 11/26/2019, 12/11/2017) * PNEUMOCOCCAL PPSV23(Given 02/21/2019) * PNEUMOCOCCAL PPV VACCINE(Given 02/25/2019) * covID PFIZER BIVALENT 5Y-11Y 10MCG/0.2ML(Given 01/21/2022) Social History Tobacco Use Types Packs/Day Years [...] T Respiratory Rate 18 03/17/2023 7:56 AM FOREST RESOURCE SPECIALIST Oxygen Saturation 98% 09/27/2023 3:16 PM CDT Inhaled Oxygen Concentration - - Weight 149.2 kg (329 lb) 09/27/2023 3:16 PM CDT Height 172.7 cm (5' 8 ) 09/27/2023 3:16 PM CDT Body Mass Index 50.02 09/27/2023 3:16 PM CDT Procedures * TSH(Performed 04/14/2023) Performed for Multiple thyroid nodules, H/O total thyroidectomy * T4 FREE(Performed 04/14/2023) Performed for Multiple thyroid nodules, H/O total thyroidectomy * CALCIUM BLOOD(Performed 03/16/2023) Performed for Multiple thyroid nodules * PTH POST-OP OR ONLY(Performed 03/16/2023) Performed for Multiple thyroid nodules * PATHOLOGY TISSUE(Performed 03/16/2023) Performed for Multiple thyroid nodules * IA THYROIDECTOMY(Performed 03/16/2023) Performed for Multiple thyroid nodules * ENDOTRACHEAL TUBE NOTE(Performed 03/16/2023) * TYPE + SCREEN PANEL(Performed 03/16/2023) Performed for Pre-op evaluation * HCG URINE QUALITATIVE - POCT (IP) INTERFACED(Performed 03/16/2023) * HCG URINE QUAL POCT NOTIFICATION(Performed 03/16/2023) Performed for Pre-op evaluation * TYPE + SCREEN PANEL(Performed 03/06/2023) Performed for Pre-op evaluation * CBC W AUTO DIFFERENTIAL(Performed 03/06/2023) Performed for Pre-op evaluation * BASIC METABOLIC PANEL (CALCIUM TOTAL)(Performed 03/06/2023) Performed for Pre-op evaluation * XR KNEE RIGHT 4VW OR MORE(Performed 08/23/2012) Performed for Sprain of right knee Results * (ABNORMAL) TSH (04/14/2023 12:17 PM FOREST RESOURCE SPECIALIST) Pathologist [facility] TSH 12.422(H) 0.350 - 4.940 uIU/mL 04/14/2023 1:23 PM FOREST RESOURCE SPECIALIST [facility] Blood BLOOD SPECIMEN / Unknown Lab Venipuncture / Unknown 04/14/2023 12:17 PM FOREST RESOURCE SPECIALIST 04/14/2023 12:38 PM FOREST RESOURCE SPECIALIST Loki John MD LAB - CHEMISTRY BEN FABIAN [facility] [address] [place] [address], [facility] [phone] * T4 FREE (04/14/2023 12:17 PM FOREST RESOURCE SPECIALIST) [facility] T4 Free 1.0 0.7 - 1.5 ng/dL 04/14/2023 1:23 PM [facility] Blood BLOOD SPECIMEN / Unknown Lab Venipuncture / Unknown 04/14/2023 12:17 PM FOREST RESOURCE SPECIALIST 04/14/2023 12:38 PM FOREST RESOURCE SPECIALIST Loki John MD LAB - CHEMISTRY BEN FABIAN [facility] [address] [place] [address], [place] [phone] * PTH POST-OP OR ONLY (03/16/2023 9:39 AM FOREST RESOURCE SPECIALIST) [facility] PTH Post-Operative 61.7 See Comment pg/mL 03/16/2023 10:34 AM FOREST RESOURCE SPECIALIST [facility] Comment:A decrease in cirula ting PTH of 50% or more, ten minutes post-resection, signals successful removal of the abnormally secreting parathyroid tissue. Blood BLOOD SPECIMEN / Unknown Venipuncture / Unknown 03/16/2023 9:39 AM FOREST RESOURCE SPECIALIST 03/16/2023 9:46 AM FOREST RESOURCE SPECIALIST Loki John MD LAB - CHEMISTRY BEN FABIAN Performing Organization Address [facility]/ZIP Co de Phone Number [address] [address], [facility] [phone] * CALCIUM BLOOD (03/16/2023 9:39 AM FOREST RESOURCE SPECIALIST) Calcium 8.7 8.4 - 10.2 mg/dL 03/16/2023 10:11 AM FOREST RESOURCE SPECIALIST [facility] Blood BLOOD SPECIMEN / Unknown Venipuncture / Unknown 03/16/2023 9:39 AM FOREST RESOURCE SPECIALIST 03/16/2023 9:46 AM FOREST RESOURCE SPECIALIST Loki John MD LAB - CHEMISTRY BEN FABIAN Performing Organization Address [facility] de Phone Number [address] [address], [facility] [phone] * PATHOLOGY TISSUE (03/16/2023 8:54 AM FOREST RESOURCE SPECIALIST) Case Report Surgical Pathology Report ? Case: [id number] ? Authorizing Provider: ??Loki John MD ? Collected: ? 03/16/2023 08:54 AM ? Ordering Location: ? [facility] ?Received: ?03/16/2023 11:04 AM ? Pathologist: ? Delores Hickey MD ? Specimen: ?Thyroid Total, Total Thyroidectomy; Stitch Right Superior ? 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 The encapsulated and follicular variant foci show invasion of the adjacent thyroid parenchyma; however, lymphvascular invasion is absent. Foci of biopsy site change are also noted as is prominent lymphocytic thyroiditis. 03/20/2023 3:25 PM [facility] Clinical History The patient is a 52-year-old woman with a multinodular thyroid with prior FNA showing indeterminate/atypica l findings and genetic testing showing 50% risk of malignancy. Operative procedure/findings: Total thyroidectomy; Bilateral thyroids with significant nodularity, removed completely. 03/20/2023 3:25 PM [facility] Gross Description The requisition and specimen(s) are identified with the patient's name, Vanda Hurt. Received in formalin, specimen A , is a 28.7 g total thyroidectomy consisting of a 5.87 x 3.5 x 1.8 cm right lobe, 5.2 x 3.5 x 2.5 cm left lobe and a 1.4 x 1.2 x 0.5 cm isthmus. The specimen is oriented with a stitch denoting right superior. The capsular surface is pink-cid, fibrous with multiple firm nodules apparent on the right and left anterior surface. The specimen is inked as follows: Right anterior-green, left anterior-blue, posterior-black. Sectioning shows multiple discrete nodules within both lobes: (1) Right superior pole white cid nodule 0.7 x 0.7 x 0.5 cm , (2) Right midpole nodule, 1.5 x 1.5 x 1.0 with pink cid colloidal cut surfaces, (3) Right lower pole nodule 1.5 x 1.1 x 0.4 cm with cid cut surfaces, (4) Left lower pole colloid cut surface nodule 1.4 x 1.0 x 0.7, and (5) Left midpole white cid fleshy nodule 2.0 x 1.9 x 1.5 cm. The surrounding thyroid parenchyma is red cid spongy with foci of white cid parenchyma. No calcifications are identified. Steel Welder sections are submitted as follows: A1-right upper pole nodule (1) A2/A3-Right mid pole nodule (2) A4/A5-right lower pole nodule (3) A6 through A8-left midpole fleshy nodule (5) A9/E91-Nwgz lower pole nodule (4). /CP 03/20/2023 3:25 PM [facility] Pathologist Location at [facility] 03/20/2023 3:25 PM [facility] Disclaimer The performance characteristics of all immunohistochemical and indirect immunofluorescence stains (if any) cited in this report were determined by the [facility] of [facility]. Some of these tests were developed by our own laboratory and have not been cleared or approved by the US Food and Drug Administration. The FDA does not require this test to go through premarket FDA review. These tests are used for clinical purposes. They should not be regarded as investigational or for research. This laboratory is certified under the Clinical Laboratory Improvement Amendments (CLIA) as qualified to perform high complexity clinical laboratory testing. This case has been personally reviewed and interpreted by the attending (teaching) pathologist. 03/20/2023 3:25 PM [facility] Synoptic Report THYROID GLAND THYROID GLAND - All Specimens 8th Edition - Protocol posted: 05/11/2022 SPECIMEN ?? Procedure: ?Total thyroidectomy TUMOR ?? Tumor Focality: ?Multifocal ?? Tumor Characteristics: ? Tumor Identifier: ?Left mid pole ? Tumor Site: ?Left lobe ? Tumor Size: ?Greatest Dimension (Centimeters): 2.0 cm ? Histologic Tumor Types and Subtypes: ? : ?Papillary carcinoma, encapsulated classic subtype ? Tumor Proliferative Activity: ? Mitotic Rate: ?Less than 3 mitoses per 2mm2 ? Tumor Necrosis: ?Not identified ? Angioinvasion (vascular invasion): ?Not identified ? Lymphatic Invasion: ?Not identified ? Extrathyroidal Extension: ?Not identified ? Margin Status: ?All margins negative for carcinoma REGIONAL LYMPH NODES ?? Regional Lymph Node Status: ? : ?All regional lymph nodes negative for tumor ? Number of Lymph Nodes Examined: ?1 ? Shaniqua Level(s) Examined: ?Level pTNM CLASSIFICATION (AJCC 8th Edition) ?? Reporting of pT, pN, and (when applicable) pM categories is based on information available to the pathologist at the time the report is issued. As per the AJCC (Chapter 1, 8th Ed.) it is the managing physician? s responsibility to establish the final pathologic stage based upon all pertinent information, including but potentially not limited to this pathology report. ?? pT Category: ?pT1b ?? T Suffix: ?(m) pN Category: ?pN0a ADDITIONAL FINDINGS Additional Findings: ?Follicular nodular disease (Thyroid follicular nodular disease) Additional Findings: ?Thyroiditis THYROID GLAND THYROID GLAND - All Specimens 8th Edition - Protocol posted: 05/11/2022 SPECIMEN ?? Procedure: ?Total thyroidectomy TUMOR ?? Tumor Focality: ?Multifocal ?? Tumor Characteristics: ? Tumor Identifier: ?Right inferior lobe ? Tumor Site: ?Right lobe ? Tumor Size: ?Greatest Dimension (Centimeters): 1.5 cm ? Histologic Tumor Types and Subtypes: ? : ?Papillary carcinoma, infiltrative follicular subtype ? Tumor Proliferative Activity: ? Mitotic Rate: ?Less than 3 mitoses per 2mm2 ? Tumor Necrosis: ?Not identified ? Angioinvasion (vascular invasion): ?Not identified ? Lymphatic Invasion: ?Not identified ? Extrathyroidal Extension: ?Not identified ? Margin Status: ?All margins negative for carcinoma REGIONAL LYMPH NODES ?? Regional Lymph Node Status: ? : ?All regional lymph nodes negative for tumor ? Number of Lymph Nodes Examined: ?1 ? Shaniqua Level(s) Examined: ?Level pTNM CLASSIFICATION (AJCC 8th Edition) ?? Reporting of pT, pN, and (when applicable) pM categories is based on information available to the pathologist at the time the report is issued. As per the AJCC (Chapter 1, 8th Ed.) it is the managing physician? s responsibility to establish the final pathologic stage based upon all pertinent information, including but potentially not limited to this pathology report. ?? pT Category: ?pT1b ?? T Suffix: ?(m) pN Category: ?pN0a ADDITIONAL FINDINGS Additional Findings: ?Follicular nodular disease (Thyroid follicular nodular disease) Additional Findings: ?Thyroiditis THYROID GLAND THYROID GLAND - All Specimens 8th Edition - Protocol posted: 05/11/2022 SPECIMEN ?? Procedure: ?Total thyroidectomy TUMOR ?? Tumor Focality: ?Multifocal ?? Tumor Characteristics: ? Tumor Identifier: ?Right upper lobe ? Tumor Site: ?Right lobe ? Tumor Size: ?Greatest Dimension (Centimeters): 0.7 cm ? Histologic Tumor Types and Subtypes: ? : ?Papillary carcinoma, Warthin-like subtype ? Tumor Proliferative Activity: ? Mitotic Rate: ?Less than 3 mitoses per 2mm2 ? Tumor Necrosis: ?Not identified ? Angioinvasion (vascular invasion): ?Not identified ? Lymphatic Invasion: ?Not identified ? Extrathyroidal Extension: ?Not identified ? Margin Status: ?All margins negative for carcinoma REGIONAL LYMPH NODES ?? Regional Lymph Node Status: ? : ?All regional lymph nodes negative for tumor ? Number of Lymph Nodes Examined: ?1 ? Shaniqua Level(s) Examined: ?Level pTNM CLASSIFICATION (AJCC 8th Edition) ?? Reporting of pT, pN, and (when applicable) pM categories is based on information available to the pathologist at the time the report is issued. As per the AJCC (Chapter 1, 8th Ed.) it is the managing physician? s responsibility to establish the final pathologic stage based upon all pertinent information, including but potentially not limited to this pathology report. ?? pT Category: ?pT1a ?? T Suffix: ?(m) pN Category: ?pN0a ADDITIONAL FINDINGS Additional Findings: ?Follicular nodular disease (Thyroid follicular nodular disease) Additional Findings: ?Thyroiditis 03/20/2023 3:25 PM FOREST RESOURCE SPECIALIST [facility] Embedded Images 03/20/2023 3:25 PM FOREST RESOURCE SPECIALIST [facility] Biopsy, Excision SPECIMEN FROM THYROID OBTAINED BY TOTAL THYROIDECTOMY / Unknown 03/16/2023 8:54 AM FOREST RESOURCE SPECIALIST 03/16/2023 11:04 AM FOREST RESOURCE SPECIALIST Comment:Pre-op diagnosis: Multiple thyroid nodules Loki John MD LAB - PATHOLOGY/CYTO LOGY ORDERABLES [facility] [address] [place] [address], [facility] [phone] * ETT LINE PERFORMABLE (03/16/2023 7:46 AM FOREST RESOURCE SPECIALIST) Narrative Mckenna Garcia Anes Asst - 03/16/2023 7:46 AM FOREST RESOURCE SPECIALIST Mckenna Garcia Anes Asst ? 03/16/2023 ??7:49 AM Endotracheal Tube Placement: ? Patient Location: OR. Intubation Event Date/Time: ??03/16/2023 7:35 AM Procedure: intubation ([id number]). Procedure Section: ?? Sedation: under general anesthesia. Indications for Airway Management: ??anesthesia Induction: standard IV Patient Position: ??supine Mask Ventilation: not attempted. Blade Type: Video Blade Size: 3 Laryngoscopy View: grade 1 (full cords) Intubation Adjuncts: stylet, cricoid pressure and video laryngoscope Tube: nerve integrity monitoring tube Placement: oral Tube type: cuff - inflated Tube Size (MM): 7 Cuff Inflated With: air Number of Attempts: 1. Placement Verified By: direct visualization, bilateral breath sounds, chest auscultation and CO2 monitor Tube secured with: ??adhesive tape. Dentition unchanged? ??Yes Difficult Airway? ??No. Procedure Start Time: 03/16/2023 7:35 AM. Staff Section ? Anesthesia Provider: Sorority Mother, Student Anesthesiology Sorority Mother Student Anesthesiology, Performed the procedure ? Provider #1: Asad Penny MD. ? Provider #2: Mckenna Garcia Anes Asst. Additional Comments: Atraumatic intubation by DRISS Mayer with lips, teeth, and tongue in pre-op condition. Eyes taped prior to intubation. . Asad Penny MD GENERAL ANESTHESIA O RDERABLES * TYPE + SCREEN PANEL (03/16/2023 6:04 AM FOREST RESOURCE SPECIALIST) Only the most recent of2 resultswithin the time period is included. Antibody Screen NEG 6:50 AM [facility] ABO Rh O POS 03/16/2023 6:50 AM [facility] Blood Bank BLOOD SPECIMEN / Unknown Venipuncture / Unknown 03/16/2023 6:04 AM FOREST RESOURCE SPECIALIST 03/16/2023 6:10 AM FOREST RESOURCE SPECIALIST Divya Carter RETAIL ANALYTICS MANAGER-MELT HOUSE SUPERVISOR LAB - BLO OD BANK ORDERABLES [facility] [address] [place] [address], [place] [phone] * HCG URINE QUALITATIVE - POCT (IP) INTERFACED (03/16/2023 5:47 AM FOREST RESOURCE SPECIALIST) HCG Qual Urine Negative Negative 03/16/2023 5:54 AM FOREST RESOURCE SPECIALIST [facility] Urine URINE / Unknown 03/16/2023 5 :47 AM FOREST RESOURCE SPECIALIST 03/16/2023 5:54 AM FOREST RESOURCE SPECIALIST Loki John MD LAB - POINT OF CARE ORDERABLES Performing Organization Address City/[facility]/ZIP Co de Phone Number [facility] [address] [place] [address], [place] [phone] * HCG URINE QUAL POCT NOTIFICATION (03/16/2023 5:43 AM FOREST RESOURCE SPECIALIST) Comment Notification Label Only - See Separate Report 03/16/2023 7:00 AM [facility] Urine URINE / Unknown 03/16/2023 5 :43 AM FOREST RESOURCE SPECIALIST 03/16/2023 5:43 AM FOREST RESOURCE SPECIALIST Divya Carter RETAIL ANALYTICS MANAGER-MELT HOUSE SUPERVISOR LAB - URI NALYSIS ORDERABLES Performing Organization Address City/[facility]/ZIP Co de Phone Number [address] [address], [place] [phone] * (ABNORMAL) CBC WITH DIFFERENTIAL (03/06/2023 12:41 PM FOREST RESOURCE SPECIALIST) WBC 7.4 4.0 - 10.7 x10E9/L 03/06/2023 1:07 PM [facility] RBC Count 4.79 3.90 - 5.20 x10E12/L 03/06/2023 1:07 PM [facility] Hemoglobin 10.4(L) 11.9 - 15.8 g/dL 03/06/2023 1:07 PM [facility] Hematocrit 34.6(L) 34.8 - 46.1 % 03/06/2023 1:07 PM [facility] MCV 72.2(L) 80.0 - 98.0 fL 03/06/2023 1:07 PM [facility] MCH 21.7(L) 26.7 - 33.6 pg 03/06/2023 1:07 PM [facility] MCHC 30.1(L) 31.7 - 36.3 g/dL 03/06/2023 1:07 PM [facility] RDW-CV 15.9(H) 11.3 - 14.8 % 03/06/2023 1:07 PM [facility] Platelet Count 360 150 - 420 x10E9/L 03/06/2023 1:07 PM [facility] MPV 10.8 7.8 - 11.4 fL 03/06/2023 1:07 PM [facility] Neutrophil % 72.4 41.0 - 74.0 % 03/06/2023 1:07 PM [facility] Lymphocyte % 16.7(L) 17.0 - 47.0 % 03/06/2023 1:07 PM [facility] Monocyte % 6.7 3.0 - 11.0 % 03/06/2023 1:07 PM [facility] Eosinophil % 3.2 0.0 - 7.0 % 03/06/2023 1:07 PM [facility] Basophil % 0.9 0.0 - 1.6 % 03/06/2023 1:07 PM [facility] Immature Granulocytes % 0.1 0.0 - 1.0 % 03/06/2023 1:07 PM [facility] Neutrophil Absolute 5.37 1.60 - 7.50 x10E9/L 03/06/2023 1:07 PM [facility] Lymphocyte Absolute 1.24 1.00 - 4.40 x10E9/L 03/06/2023 1:07 PM [facility] Monocyte Absolute 0.50 0.15 - 1.00 x10E9/L 03/06/2023 1:07 PM [facility] Eosinophil Absolute 0.24 0.00 - 0.60 x10E9/L 03/06/2023 1:07 PM [facility] Basophil Absolute 0.07 0.00 - 0.13 x10E9/L 03/06/2023 1:07 PM [facility] Blood BLOOD SPECIMEN / Unknown Lab Venipuncture / Unknown 03/06/2023 12:41 PM FOREST RESOURCE SPECIALIST 03/06/2023 12:58 PM FOREST RESOURCE SPECIALIST Divya Eppersonshivakasia RETAIL ANALYTICS MANAGER-MELT HOUSE SUPERVISOR LAB - HEM ATOLOGY ORDERABLES [facility] [address] [place] [address], [facility] [phone] * (ABNORMAL) BASIC METABOLIC PANEL (CALCIUM TOTAL) (03/06/2023 12:41 PM FOREST RESOURCE SPECIALIST) BUN 16 7 - 26 mg/dL 03/06/2023 1:27 PM [facility] Creatinine 0.91 0.56 - 0.96 mg/dL 03/06/2023 1:27 PM [facility] Sodium 140 136 - 145 mmol/L 03/06/2023 1:27 PM [facility] Potassium 4.1 3.5 - 4.5 mmol/L 03/06/2023 1:27 PM [facility] Chloride 108(H) 98 - 107 mmol/L 03/06/2023 1:27 PM [facility] CO2 25 22 - 29 mmol/L 03/06/2023 1:27 PM [facility] Glucose 82 70 - 115 mg/dL 03/06/2023 1:27 PM [facility] Calcium 9.1 8.4 - 10.2 mg/dL 03/06/2023 1:27 PM [facility] Anion Gap 7 6 - 16 03/06/2023 1:27 PM [facility] BUN/Creatinine Ratio 18 7 - 23 03/06/2023 1:27 PM [facility] Osmolality Calculated 290 275 - 295 mOsm/kg 03/06/2023 1:27 PM [facility] eGFR by CKD-EPI 77(L) >=90 mL/min/1.7 3 m2 03/06/2023 1:27 PM [facility] Blood BLOOD SPECIMEN / Unknown Lab Venipuncture / Unknown 03/06/2023 12:41 PM FOREST RESOURCE SPECIALIST 03/06/2023 12:58 PM FOREST RESOURCE SPECIALIST Divya Dcfaizakasia RETAIL ANALYTICS MANAGER-MELT HOUSE SUPERVISOR LAB - PEE LANDRY ORDERABLES [facility] [address] [place] [address], [facility] [phone] * XR KNEE 4+ VW RIGHT (08/23/2012 10:21 PM CDT) Anatomical Region Laterality Modality Lower Extremity Radiographic Bianka ging 08/24/2012 7:32 AM CDT Impressions 08/24/2012 7:32 AM CDT Unremarkable study. Narrative 08/24/2012 7:32 AM CDT Right knee multiple views. HISTORY: Knee pain. Views of the knee demonstrate no fracture or dislocation or lytic or blastic lesion. Procedure Note Tripp Church MD - 08/24/2012 Right knee multiple views. HISTORY: Knee pain. Views of the knee demonstrate no fracture or dislocation or lytic or blastic lesion. IMPRESSION Unremarkable study. Radha Jain MD DIAGNOSTIC IMAGI NG ORDERABLES Care Teams Assorter Relationship Specialty Start Date End Date Kaye Pendleton PA-C [address] [place] [address] PCP - General Physician Sorority Mother 09/08/22
--- OUTSIDE RECORDS SUMMARY | 2024-03-14 08:37 | XMS_ITS | Referral Summary ---
Author Organization [facility] Address [address] [place] [address] Care Team Providers Care Fountain Waitress/Waiter Name Role Phone Kaye Pendleton PA-C Primary Care Provider [phone] Source Comments [facility],non-owned Affiliates and Associated Physician Practices is amultiple site organization consisting of ambulatory clinics and hospital sitesin [place], [place], [place] and [place]. This disclosure is being madepursuant to the Care Everywhere program and may not contain all information available regarding this patient. Last updated 17.[facility] Allergies No known active allergies Medications * Be aware that medications may not be up to date on this document. Alwaysverify current medications with the patient. Medication Sig Dispensed Refills Start Date End Date Status FLUoxetine (PROzac) 40 MG capsule Take 1 (one) capsule by mouth once daily 03/10/2022 Active fluticasone propionate (Flonase) 50 MCG/ACT nasal spray Lucan 1 (one) spray into each nostril once [...] Due COVID PFIZER 12+YR 30MCG/0.3mL 11/30/2022 Covid SeaMicro primary monoval ent 12+ yr 0.3mL Purple [...] PNEUMOCOCCAL PPSV23 02/21/2019 PNEUMOCOCCAL PPV VACCINE 02/25/2019 covDot BIVALENT 5Y-11Y 10MCG/0.2ML 01/21/2022 Social History Tobacco Use Types Packs/Day Years [...] T Respiratory Rate 18 03/17/2023 7:56 AM SHERIFF OFFICER Oxygen Saturation 98% 09/27/2023 3:16 PM CDT Inhaled Oxygen Concentration - - Weight 149.2 kg (329 lb) 09/27/2023 3:16 PM CDT Height 172.7 cm (5' 8 ) 09/27/2023 3:16 PM CDT Body Mass Index 50.02 09/27/2023 3:16 PM CDT Plan of Treatment Upcoming Encounters Date Type Department Care Team (Late st Contact Info) Description 10/02/2024 12:45 PM CDT Office Visit [facility] - ENT [address] [place] [phone] Loki John MD [address] [place] [address] [place] [address] Procedures Procedure Name Priority Date/Time Associated Diagnosis Comments BASIC METABOLIC PANEL (CALCIUM TOTAL) Routine 03/06/2023 12:41 PM SHERIFF OFFICER Pre-op evaluation from Last 3 Months or Most Recently Relevant to Health Maintenance Results * (ABNORMAL) BASIC METABOLIC PANEL (CALCIUM TOTAL) (03/06/2023 12:41 PM SHERIFF OFFICER) BUN 16 7 - 26 mg/dL 03/06/2023 1:27 PM [facility] Creatinine 0.91 0.56 - 0.96 mg/dL 03/06/2023 1:27 PM [facility] Sodium 140 136 - 145 mmol/L 03/06/2023 1:27 PM [facility] Potassium 4.1 3.5 - 4.5 mmol/L 03/06/2023 1:27 PM [facility] Chloride 108(H) 98 - 107 mmol/L 03/06/2023 1:27 PM [facility] CO2 25 22 - 29 mmol/L 03/06/2023 1:27 PM [facility] Glucose 82 70 - 115 mg/dL 03/06/2023 1:27 PM [facility] Calcium 9.1 8.4 - 10.2 mg/dL 03/06/2023 1:27 PM [facility] Anion Gap 7 6 - 16 03/06/2023 1:27 PM [facility] BUN/Creatinine Ratio 18 7 - 23 03/06/2023 1:27 PM [facility] Osmolality Calculated 290 275 - 295 mOsm/kg 03/06/2023 1:27 PM [facility] eGFR by CKD-EPI 77(L) >=90 mL/min/1.7 3 m2 03/06/2023 1:27 PM [facility] Blood BLOOD SPECIMEN / Unknown Lab Venipuncture / Unknown 03/06/2023 12:41 PM SHERIFF OFFICER 03/06/2023 12:58 PM [facility] Divya Carter SMALL MACHINE BINDERY OPERATOR-CATERING DIRECTOR LAB - PEE LANDRY ORDERABLES [facility] [address] [place] [address], [facility] [phone] from Last 3 Months or Most Recently Relevant to Health Maintenance Advance Directives * Full Code (Latest Code Status on File) Date Activated Date Inactivated Comments 03/16/2023 1:17 PM 03/17/2023 11:57 AM Care Teams Fountain Waitress/Waiter Relationship Specialty Start Date End Date Kaye Pendleton PA-C [address] [place] [id number] PCP - General Physician Pet Sitting 09/08/22
--- OUTSIDE RECORDS SUMMARY | 2024-03-14 08:37 | XMS_ITS | Referral Summary ---
Author Organization [facility] Address [address] [place] [phone] Care Team Providers Care Extruding Press Operator Name Role Phone Kami Manning NP Primary Care Provider [phone] Tika FUNG MD PhD, Russ Smith Unavailable Jaylen Donnelly MD Unavailable [phone] Encounters Date Type Department Care Team Description 03/04/2024 4:30 PM IRON ERECTOR Office Visit [facility] Primary [facility] [address] [place] [phone] Kami Manning NP Routine medical exam (Primary Dx); Iron deficiency anemia, unspecified iron deficiency anemia type; Acquired hypothyroidism; Anxiety and depression; History of skin cancer; History of thyroid cancer; Mild intermittent asthma without complication; Encounter for screening mammogram for malignant neoplasm of breast; Morbid obesity with BMI of 50.0-59.9, adult (HCC) 02/06/2024 5:10 AM IRON ERECTOR E-Visit [facility] Virtual Care [address] [place] [phone] Mackenzie Boo NP Your Medications 02/06/2024 Patient Self-Triage [facility] Health[facility]/ Physicians [facility] [place] [address] Mychart, Generic Provider from Last 3 Months Allergies No known active allergies Medications FLUoxetine [...] 03/08/2024 Assessment & Plan (03/08/2024 8:37 AM IRON ERECTOR): CBC, CMP, lipid panel ordered. Mammogram ordered. Patient to sign release form to obtain last Pap results from her DELIVERY LEAD. Adolfo completed 08/2023 repeat in 3 years. Vaccinations: Due for COVID, Shingrix,and Flu vaccines. Repeat wellness exam in one year. Morbid obesity with BMI of 50.0-59.9, adult 02/20 Assessment & Plan (03/08/2024 8:39 AM IRON ERECTOR): Chronic, improving. Patient to continue exercising daily and making diet changes, limiting fatty foods and processed foods. Follow up in 6 months. Papillary thyroid carcinoma 07/03/2023 Mild intermittent asthma without complication Assessment & Plan (03/08/2024 8:37 AM IRON ERECTOR): Chronic, controlled. Patient to restart Symbicort BID and continue albuterol inhaler PRN. Follow up in 6 months. Assessment & Plan (05/04/2023 4:52 PM CDT): Chronic, controlled. Patient to restart Symbicort BID and continue albuterol inhaler PRN. Follow up in 6 months. Anxiety and depression 05/04/2023 Assessment & Plan (03/08/2024 8:33 AM IRON ERECTOR): Chronic, controlled. Patient to continue on fluoxetine 40 mg daily. Follow up in 6 months. Assessment & Plan (05/04/2023 4:40 PM CDT): Chronic, controlled. Patient to continue on fluoxetine 40 mg daily. Follow up in 6 months. Acquired hypothyroidism 05/04/2023 Assessment & Plan (03/08/2024 8:34 AM IRON ERECTOR): Chronic, patient following with Dr. Allison endocrinology. Currently taking Synthroid 200 mcg daily. Assessment & Plan (05/04/2023 4:40 PM CDT): Chronic, improving patient following with Dr. Allison endocrinology. Currently taking levothyroxine 150 mcg daily. History of thyroid cancer 05/04/2023 Assessment & Plan (03/08/2024 8:32 AM IRON ERECTOR): Thyroidectomy completed in 02/2023. Currently following with Dr. Alvaro MCRAE. Assessment & Plan (05/04/2023 4:56 PM CDT): Thyroidectomy completed in 02/2023. Currently following with Dr. Alvaro MCRAE. History of skin cancer 05/04/2023 Overview (05/04/2023): History of basal cell of left cheek. Patient currently following with [facility] for yearly skin checks. Assessment & Plan (03/08/2024 8:33 AM IRON ERECTOR): History of basal cell of left cheek. Patient currently following with [facility] for yearly skin checks. Assessment & Plan (05/04/2023 4:55 PM CDT): History of basal cell of left cheek. Patient currently following with [facility] for yearly skin checks. Iron deficiency anemia 05/04/2023 Assessment & Plan (03/08/2024 8:38 AM IRON ERECTOR): Chronic, stable patient unable to tolerate oral supplements. Patient to have CBC, iron profile, and ferratin level redrawn. Follow up in 6 months. Assessment & Plan (05/04/2023 4:54 PM CDT): Chronic, stable patient unable to tolerate oral supplements. Patient to have CBC, iron profile, and ferratin level redrawn in 2 months. Immunizations Name Administration Dates Next Due COVID-19 mRNA (NextVR) 0.3 m L (30 mcg) vaccine (12 [...] 01/21/2022 Pneumococcal Polysaccharide PPV23 02/25/2019,03/2019 Tdap 05/20/2023 Social History Tobacco Use Types Packs/Day Years [...] on file Legal Sex Female 2:15 AM IRON ERECTOR Gender Identity Not on file Sexual Orientation Not on file Last Filed Vital Signs Vital Sign Reading Time Taken Comments Blood Pressure 124/84 03/04/2024 3:43 PM IRON ERECTOR Pulse 97 03/04/2024 3:43 PM IRON ERECTOR Temperature 36.6 ??C (97.8 ??F) 03/04/2024 3:43 PM CS T Respiratory Rate 20 03/04/2024 3:43 PM IRON ERECTOR Oxygen Saturation 98% 03/04/2024 3:43 PM IRON ERECTOR Inhaled Oxygen Concentration - - Weight 140.7 kg (310 lb 1.6 oz) 03/04/2024 3:43 PM IRON ERECTOR Height 166.4 cm (5' 5.51 ) 03/04/2024 3:43 PM CS T Body Mass Index 50.8 03/04/2024 3:43 PM IRON ERECTOR Plan of Treatment Not on file Insurance * Guarantor: Vanda Hurt Account Type Relation to Patient Date of Phone Billing Address Personal/Family Self 1970 [address] [place] [address] [facility] Care Teams Extruding Press Operator Relationship Specialty Start Date End Date Kami Manning SEWING MACHINES SALESPERSON [address] [place] [id number] PCP - General Family Medicine 05/04/23 Russ Villela III, MD PhD [address] [place] [id number] Radiation Oncologist Radiation Oncology 07/06/23 Jaylen Donnelly MD [address] [place] [phone] Consulting Physician Endocrinology Diabetes & Metabolism 07/06/23
--- OUTSIDE RECORDS SUMMARY | 2024-03-14 08:37 | XMS_ITS | Encounter Summary ---
Author Organization [facility] Healthcare Address [address] [place] [address] Care Team Providers Care Brush Cleaner Name Role Phone Kami Manning NP Primary Care Provider [phone] Tika FUNG MD PhD, Russ Smith Unavailable Jaylen Donnelly MD Unavailable [phone] Encounter Details Date Type Department Care Team ([facility] st Contact Info) Description 05/15/2023 Telephone [facility] Medical Group Primary Care [address] [phone] Kami Manning NP [facility] [address] Social History Tobacco Use Types Packs/Day Years [...] on file Legal Sex Female 2:15 AM BINDING DYER Gender Identity Not on file Sexual Orientation Not on file documented as of this encounter Plan of Treatment Not on file documented as of this encounter Visit Diagnoses Not on filedocumented in this encounter Care Teams Brush Cleaner Relationship Specialty Start Date End Date Kami Manning NP [address] [place] [phone] PCP - General Family Medicine 05/04/23 Russ Villela III, MD PhD [address] [place] [address] [phone] Radiation Oncologist Radiation Oncology 07/06/23 Jaylen Donnelly MD [address] [place] [phone] Consulting Physician Endocrinology Diabetes & Metabolism 07/06/23 documented as of this encounter
--- OUTSIDE RECORDS SUMMARY | 2024-03-14 08:37 | XMS_ITS ---
Author Organization [facility] Address [address] [place] [phone] Care Team Providers Care Manufacturing Technology Analyst Name Role Phone Kami Manning NP Primary Care Provider [phone] Tika FUNG MD PhD, Russ Smith Unavailable Jaylen Donnelly MD Unavailable Active Problems Problem Noted Date Diagnosed Date Routine medical exam 03/08/2024 Assessment & Plan (03/08/2024 8:37 AM COMPENSATION MANAGER): CBC, CMP, lipid panel ordered. Mammogram ordered. Patient to sign release form to obtain last Pap results from her [facility]. Adolfo completed 08/2023 repeat in 3 years. Vaccinations: Due for COVID, Shingrix,and Flu vaccines. Repeat wellness exam in one year. Morbid obesity with BMI of 50.0-59.9, adult 02/20 Assessment & Plan (03/08/2024 8:39 AM COMPENSATION MANAGER): Chronic, improving. Patient to continue exercising daily and making diet changes, limiting fatty foods and processed foods. Follow up in 6 months. Papillary thyroid carcinoma 07/03/2023 Mild intermittent asthma without complication Assessment & Plan (03/08/2024 8:37 AM COMPENSATION MANAGER): Chronic, controlled. Patient to restart Symbicort BID and continue albuterol inhaler PRN. Follow up in 6 months. Assessment & Plan (05/04/2023 4:52 PM CDT): Chronic, controlled. Patient to restart Symbicort BID and continue albuterol inhaler PRN. Follow up in 6 months. Anxiety and depression 05/04/2023 Assessment & Plan (03/08/2024 8:33 AM COMPENSATION MANAGER): Chronic, controlled. Patient to continue on fluoxetine 40 mg daily. Follow up in 6 months. Assessment & Plan (05/04/2023 4:40 PM CDT): Chronic, controlled. Patient to continue on fluoxetine 40 mg daily. Follow up in 6 months. Acquired hypothyroidism 05/04/2023 Assessment & Plan (03/08/2024 8:34 AM COMPENSATION MANAGER): Chronic, patient following with Dr. Allison endocrinology. Currently taking Synthroid 200 mcg daily. Assessment & Plan (05/04/2023 4:40 PM CDT): Chronic, improving patient following with Dr. Allison endocrinology. Currently taking levothyroxine 150 mcg daily. History of thyroid cancer 05/04/2023 Assessment & Plan (03/08/2024 8:32 AM COMPENSATION MANAGER): Thyroidectomy completed in 02/2023. Currently following with Dr. Alvaro MCRAE. Assessment & Plan (05/04/2023 4:56 PM CDT): Thyroidectomy completed in 02/2023. Currently following with Dr. Alvaro MCRAE. History of skin cancer 05/04/2023 Overview (05/04/2023): History of basal cell of left cheek. Patient currently following with [facility] for yearly skin checks. Assessment & Plan (03/08/2024 8:33 AM COMPENSATION MANAGER): History of basal cell of left cheek. Patient currently following with [facility] for yearly skin checks. Assessment & Plan (05/04/2023 4:55 PM CDT): History of basal cell of left cheek. Patient currently following with [facility] for yearly skin checks. Iron deficiency anemia 05/04/2023 Assessment & Plan (03/08/2024 8:38 AM COMPENSATION MANAGER): Chronic, stable patient unable to tolerate oral supplements. Patient to have CBC, iron profile, and ferratin level redrawn. Follow up in 6 months. Assessment & Plan (05/04/2023 4:54 PM CDT): Chronic, stable patient unable to tolerate oral supplements. Patient to have CBC, iron profile, and ferratin level redrawn in 2 months. Current Oncology Plans No current plan information found. Past Plans No past plan information found. Radiation Treatments * Plan Last Treated On Elapsed Days Fractions Treated Prescribed Fraction Dose Prescribed Total Dose Thyroid1 06/30/2023 0 1 30 cGy 30 cGy Reference Point Last Treated On Elapsed Days Session Dose Total Dose Thyroid1 06/30/2023 0 30 cGy 30 cGy
== END 2024-03-09 08:25 | disposition home or self-care (01) ==
PROVIDERS: Visit Provider Internal Medicine
DX: C73 Malignant neoplasm of thyroid gland (principal); D50.9 Iron deficiency anemia, unspecified; Z00.00 Encounter for general adult medical examination without abnormal findings
CPT/HCPCS: 36415; 80053; 80061; 82728; 83540; 83550; 84432; 84439; 84443; 85025; 86800

== ENCOUNTER 2024-09-04 14:14 | Outpatient (CLI) | payer BC, SELFPAY ==
--- OUTSIDE RECORDS SUMMARY | 2024-09-04 14:21 | XMS_ITS | Clinical Summary ---
Author Organization [facility] at the Medical Office Building Address [address] [place] [address] Care Team Providers Care Fibreglass Laminator Name Role Phone Kami Manning NP Primary Care Provider [phone] Tika FUNG MD PhD, Russ Smith Unavailable Jaylen Donnelly MD Unavailable [phone] Loki John MD Unavailable [phone] Allergies No known active allergies Medications FLUoxetine [...] for wheezing 1 each 5 4 Active norethindrone (MICRONOR) 0.35 mg tablet Take 1 tablet (0.35 mg total) by mouth daily 3 08/23/19 25 Discontinu ed(Therapy completed) Active Problems Problem Noted Date Diagnosed Date Routine medical exam 03/08/2024 Assessment & Plan (03/08/2024 8:37 AM TANYARD WORKER): CBC, CMP, lipid panel ordered. Mammogram ordered. Patient to sign release form to obtain last Pap results from her TONAL REGULATOR. Adolfo completed 08/2023 repeat in 3 years. Vaccinations: Due for COVID, Shingrix,and Flu vaccines. Repeat wellness exam in one year. Morbid obesity with BMI of 50.0-59.9, adult 02/20 Assessment & Plan (03/08/2024 8:39 AM TANYARD WORKER): Chronic, improving. Patient to continue exercising daily and making diet changes, limiting fatty foods and processed foods. Follow up in 6 months. Papillary thyroid carcinoma 07/03/2023 Mild intermittent asthma without complication Assessment & Plan (03/08/2024 8:37 AM TANYARD WORKER): Chronic, controlled. Patient to restart Symbicort BID and continue albuterol inhaler PRN. Follow up in 6 months. Assessment & Plan (05/04/2023 4:52 PM CDT): Chronic, controlled. Patient to restart Symbicort BID and continue albuterol inhaler PRN. Follow up in 6 months. Anxiety and depression 05/04/2023 Assessment & Plan (03/08/2024 8:33 AM TANYARD WORKER): Chronic, controlled. Patient to continue on fluoxetine 40 mg daily. Follow up in 6 months. Assessment & Plan (05/04/2023 4:40 PM CDT): Chronic, controlled. Patient to continue on fluoxetine 40 mg daily. Follow up in 6 months. Acquired hypothyroidism 05/04/2023 Assessment & Plan (03/08/2024 8:34 AM TANYARD WORKER): Chronic, patient following with Dr. Allison endocrinology. Currently taking Synthroid 200 mcg daily. Assessment & Plan (05/04/2023 4:40 PM CDT): Chronic, improving patient following with Dr. Allison endocrinology. Currently taking levothyroxine 150 mcg daily. History of thyroid cancer 05/04/2023 Assessment & Plan (03/08/2024 8:32 AM TANYARD WORKER): Thyroidectomy completed in 02/2023. Currently following with Dr. Alvaro MCRAE. Assessment & Plan (05/04/2023 4:56 PM CDT): Thyroidectomy completed in 02/2023. Currently following with Dr. Alvaro MCRAE. History of skin cancer 05/04/2023 Overview (05/04/2023): History of basal cell of left cheek. Patient currently following with [facility] for yearly skin checks. Assessment & Plan (03/08/2024 8:33 AM TANYARD WORKER): History of basal cell of left cheek. Patient currently following with [facility] for yearly skin checks. Assessment & Plan (05/04/2023 4:55 PM CDT): History of basal cell of left cheek. Patient currently following with [facility] for yearly skin checks. Iron deficiency anemia 05/04/2023 Assessment & Plan (03/08/2024 8:38 AM TANYARD WORKER): Chronic, stable patient unable to tolerate oral supplements. Patient to have CBC, iron profile, and ferratin level redrawn. Follow up in 6 months. Assessment & Plan (05/04/2023 4:54 PM CDT): Chronic, stable patient unable to tolerate oral supplements. Patient to have CBC, iron profile, and ferratin level redrawn in 2 months. Encounters Date Type Department Care Team Description 08/22/2024 1:00 PM CDT Office Visit [facility] Radiation Oncology [address] [place] [address] Vivian Ragsdale PA Papillary thyroid carcinoma (HCC) (Primary Dx) 08/22/2024 9:23 AM CDT - 08/22/2024 11:59 PM CDT Hospital Encounter [facility] [address] [place] [address] Discharge Disposition: Discharge to home or self care 08/20/2024 11:49 AM CDT - 08/20/2024 11:59 PM CDT Hospital Encounter [facility] Radiology [address] [place] [address] Malignant neoplasm of thyroid gland (HCC) Discharge Disposition: Discharge to home or self care 08/05/2024 Orders Only [facility] Radiation Oncology [address] [facility] [place] [address] Vivian Ragsdale PA 06/26/2024 Orders Only [facility] [address] [place] [address] Vivian Ragsdale PA Malignant neoplasm of thyroid gland (HCC) (Primary Dx) from Last 3 Months Immunizations Immunization Administration Dates Next Due COVID-19 mRNA (Canesta) 0.3 m L (30 mcg) vaccine (12 [...] Medical History Medical History Date Comments Cancer (HCC) Thyroid disease Family History Medical History [...] more points, staff should administer the PHQ-9) 0 05/02/2024 Comments Unknown Sex and Gender Information Value Date Recorded Sex Assigned at Not on file Legal Sex Female 2:15 AM TANYARD WORKER Gender Identity Not on file Sexual Orientation Not on file Obstetrics History Last Filed Vital Signs Vital Sign Reading Time Taken Comments Blood Pressure 124/84 03/04/2024 3:43 PM TANYARD WORKER Pulse 97 03/04/2024 3:43 PM TANYARD WORKER Temperature 36.6 C (97.8 F) 03/04/2024 3:43 PM TANYARD WORKER Respiratory Rate 20 03/04/2024 3:43 PM TANYARD WORKER Oxygen Saturation 98% 03/04/2024 3:43 PM TANYARD WORKER Inhaled Oxygen Concentration - - Weight 139.3 kg (307 lb) 08/22/2024 1:46 PM CDT Height 166.4 cm (5' 5.5) 08/22/2024 1:46 PM CDT Body Mass Index 50.31 08/22/2024 1:46 PM CDT Plan of Treatment Health Maintenance Due Date Last Done Comments Cervical Cancer Screening 1972 Hepatitis C Screening 1972 Hepatitis B Screening 1990 Zoster Vaccine (1 of 2) 2022 Influenza Vaccine (#1) 2024 , 11/30/2022, 01/21/2022, Additional history exists Breast Cancer Screening-Mammogram 12/18/2024 024 Depression Screening 03/04/2025 03/04/2024, 05/04/19 24 Regular Well Visit/Exam 18-64 03/04/2025 03/04/2024 DTaP/Tdap/Td Vaccine (2 - Td or Tdap) 05/19/2033 05/20/2023 Colon Cancer Screening-Colonoscopy 09/04/2033 09/05/2023 Pneumococcal vaccine <65 Discontinued 02/25/2019, 03/2019 Covid-19 Vaccine Discontinued 12/08/2023, 12/2022, 01/21/2022, Additional history exists Procedures Procedure Name Priority Date/Time Associated Diagnosis Comments NM THYROID CANCER METS WHOLE BODY IMAGING Schedule Routine, Read Routine (OP Routine) 08/22/2024 10:56 AM CDT Malignant neoplasm of thyroid gland (HCC) HCG, BLOOD, QUANTITATIVE Routine 08/19/2024 6:09 AM CDT Malignant neoplasm of thyroid gland (HCC) THYROGLOBULIN ANTIBODIES Routine 08/19/2024 6:09 AM CDT Malignant neoplasm of thyroid gland (HCC) THYROGLOBULIN Routine 08/19/2024 6:09 AM CDT Malignant neoplasm of thyroid gland (HCC) TSH Routine 08/19/2024 6:09 AM CDT Malignant neoplasm of thyroid gland (HCC) THYROGLOBULIN, THYROGLOBULIN ANTIBODIES Routine 08/05/2024 6:30 AM CDT T3, FREE Routine 08/05/2024 6:30 AM CDT HCG, BLOOD, QUALITATIVE Routine 08/05/2024 6:30 AM CDT TSH Routine 08/05/2024 6:30 AM CDT T4, FREE Routine 08/05/2024 6:30 AM CDT from Last 3 Months Results * NM Thyroid Cancer Mets Whole Body Imaging (08/22/2024 10:56 AM CDT) Anatomical Region Laterality Modality Head and Neck N/A Nuclear Medicine 08/22/2024 2:21 PM CDT Impressions 08/22/2024 2:58 PM CDT No functioning thyroid tissue. Dictated by: Henry Howell MD The radiology attending physician has personally reviewed this study, and had reviewed and/or edited this written report and agrees with it. Electronically signed by: DO Garry Dupont 08/22/2024 2:58 PM CDT EXAMINATION: WHOLE-BODY I-131 IMAGING DATE STARTED: 08/20/2024 DATE COMPLETED: 08/22/2024 RADIOPHARMACEUTICAL: 5 mCi I-131 sodium iodide given orally after confirmation that the patient was not or breast-feeding. HISTORY: 53-year-old woman with multifocal papillary thyroid carcinoma status post total thyroidectomy (02/2023) and 30 mCi radioactive iodine treatment (06/2023). Most recent thyroglobulin on 08/05/2024 was less than 0.1. The most recent radioactive iodine therapy was 30 mCi I-131 administered on 06/30/2023 by the Department of Radiation Oncology. COMPARISON: Whole-body I-131 imaging 07/04/2023 FINDINGS: The patient was prepared for this study by thyroid hormone withdrawal. The TSH on 08/19/2024 was 37.82 microunits/mL. The patient was given both written and oral instructions regarding radiation safety precautions intended to maintain exposure to other individuals as low as reasonably achievable. Images of the head, neck, trunk, and proximal extremities were obtained 2 days later. There is expected I-131 activity in the salivary glands, stomach, colon, and urinary bladder. Previously noted foci of increased tracer uptake in the thyroidectomy bed have resolved. No increased activity consistent with functioning thyroid tissue is seen. Procedure Note Elgin Mclaughlin DO - 08/22/2024 EXAMINATION: WHOLE-BODY I-131 IMAGING DATE STARTED: 08/20/2024 DATE COMPLETED: 08/22/2024 RADIOPHARMACEUTICAL: 5 mCi I-131 sodium iodide given orally after confirmation that the patient was not or breast-feeding. HISTORY: 53-year-old woman with multifocal papillary thyroid carcinoma status post total thyroidectomy (02/2023) and 30 mCi radioactive iodine treatment (06/2023). Most recent thyroglobulin on 08/05/2024 was less than 0.1. The most recent radioactive iodine therapy was 30 mCi I-131 administered on 06/30/2023 by the Department of Radiation Oncology. COMPARISON: Whole-body I-131 imaging 07/04/2023 FINDINGS: The patient was prepared for this study by thyroid hormone withdrawal. The TSH on 08/19/2024 was 37.82 microunits/mL. The patient was given both written and oral instructions regarding radiation safety precautions intended to maintain exposure to other individuals as low as reasonably achievable. Images of the head, neck, trunk, and proximal extremities were obtained 2 days later. There is expected I-131 activity in the salivary glands, stomach, colon, and urinary bladder. Previously noted foci of increased tracer uptake in the thyroidectomy bed have resolved. No increased activity consistent with functioning thyroid tissue is seen. IMPRESSION: No functioning thyroid tissue. Dictated by: Henry Howell MD The radiology attending physician has personally reviewed this study, and had reviewed and/or edited this written report and agrees with it. Electronically signed by: Elgin Mclaughlin DO Vivian POOL IMG NM PROCEDURES Final Result * Thyroglobulin antibodies (08/19/2024 6:09 AM CDT) Thyroglobulin ab <1 < or = 1 IU/mL [facility] Blood 08/19/2024 6:09 AM CDT 08/19/2024 6:10 AM CDT Vivian POOL LAB BLOOD ORDERABLES Fi nal Result [facility] [address] [place] [address] * Thyroglobulin (08/19/2024 6:09 AM CDT) Thyroglobulin, lc/ms/ms <0.4 ng/mL [facility], Comment: Reference Range: Athyrotic: <0.4 Reference range applies to differentiated thyroid cancer patients following treatment. The presence of measurable thyroglobulin indicates the presence of thyroglobulin-producing thyroid tissue. Clinical correlation is advised. This Thyroglobulin test was performed by tandem mass spectrometry (LC/MS/MS) and does provide quantitative measurements of thyroglobulin in the presence of anti-Tg antibodies. Values obtained from different assay methods cannot be used interchangeably. Thyroglobulin levels, regardless of value, should not be interpreted as absolute evidence of the presence or absence of disease. This test was developed and its analytical performance characteristics have been determined by [employer]. It has not been cleared or approved by the FDA. This assay has been validated pursuant to the CLIA regulations and is used for clinical purposes. Blood 08/19/2024 6:09 AM CDT 08/19/2024 6:10 AM CDT Vivian POOL LAB BLOOD ORDERABLES Fi nal Result Performing Organization Address [facility] Co de Phone Number [facility], [address] [place] [address] * hCG, blood, quantitative (08/19/2024 6:09 AM CDT) HCG, quant <5 mIU/mL [facility] Comment: Reference Range Non or premenopausal <5 Postmenopausal <10 Values from different assay methods may vary. The use of this assay to monitor or to diagnose patients with cancer or any condition unrelated to has not been cleared or approved by the FDA or the csr of the assay. Blood 08/19/2024 6:09 AM CDT 08/19/2024 6:10 AM CDT Vivian POOL LAB BLOOD ORDERABLES Fi nal Result Performing Organization Address City/[facility]/ZIP Co de Phone Number [facility] [address] [facility] [place] [address] * (ABNORMAL) TSH (08/19/2024 6:09 AM CDT) TSH 37.82(H) mIU/L [facility] Comment: Reference Range > or = 20 Years 0.40-4.50 Ranges First trimester 0.26-2.66 Second trimester 0.55-2.73 Third trimester 0.43-2.91 Blood 08/19/2024 6:09 AM CDT 08/19/2024 6:10 AM CDT Vivian POOL LAB BLOOD ORDERABLES Fi nal Result Performing Organization Address City/[facility] Co de Phone Number [facility] [address] [place] [address] * (ABNORMAL) Thyroglobulin, Thyroglobulin Antibodies (08/05/2024 6:30 AM CDT) Thyroglobulin ab <1 < or = 1 IU/mL [facility] Thyroglobulin <0.1(L) ng/mL [facility] Comment: Reference Range: Intact Thyroid 2.8-40.9 Athyrotic <0.1 Note: Abnormal flagging is based on the reference interval for patients with intact thyroid. This test was performed using the [employer] chemiluminescent method. Values obtained from different assay methods cannot be used interchangeably. Thyroglobulin levels, regardless of value, should not be interpreted as absolute evidence of the presence or absence of disease. For additional information, please refer to http://education.Teamisto/faq/KXX322 (This link is being provided for informational/ educational purposes only.) 08/05/2024 6:30 AM CDT 08/05/2024 6:31 AM CDT Narrative [facility] - 08/07/2024 8:46 AM CDT FASTING:YES FASTING: YES Vivian POOL LAB BLOOD ORDERABLES Fi nal Result Performing Organization Address City/[facility]/ZIP Co de Phone Number [facility] [address] [place] [address] * hCG, blood, qualitative (08/05/2024 6:30 AM CDT) HCG, qual NEGATIVE See Note: [facility] Comment: Reference Range: Reference Range Non-: Negative : Positive 08/05/2024 6:30 AM CDT 08/05/2024 6:31 AM CDT Narrative [facility] - 08/07/2024 8:46 AM CDT FASTING:YES FASTING: YES Vivian POOL LAB BLOOD ORDERABLES Fi nal Result Performing Organization Address [facility] de Phone Number [facility] [address] [place] [address] * T3, free (08/05/2024 6:30 AM CDT) Free T3 3.3 2.3 - 4.2 pg/mL [facility] 08/05/2024 6:30 AM CDT 08/05/2024 6:31 AM CDT Narrative [facility] - 08/07/2024 8:46 AM CDT FASTING:YES FASTING: YES Vivian POOL LAB BLOOD ORDERABLES Fi nal Result Performing Organization Address [facility] de Phone Number [facility] [address] [place] [address] * (ABNORMAL) TSH (08/05/2024 6:30 AM CDT) TSH 0.10(L) mIU/L [facility] [facility] Comment: Reference Range > or = 20 Years 0.40-4.50 Ranges First trimester 0.26-2.66 Second trimester 0.55-2.73 Third trimester 0.43-2.91 08/05/2024 6:30 AM CDT 08/05/2024 6:31 AM CDT Narrative [facility] - 08/07/2024 8:46 AM CDT FASTING:YES FASTING: YES Vivian POOL LAB BLOOD ORDERABLES Fi nal Result Performing Organization Address [facility] de Phone Number [facility] [address] [place] [address] * T4, free (08/05/2024 6:30 AM CDT) Free T4 1.8 0.8 - 1.8 ng/dL [facility] 08/05/2024 6:30 AM CDT 08/05/2024 6:31 AM CDT Narrative [facility] - 08/07/2024 8:46 AM CDT FASTING:YES FASTING: YES Vivian POOL LAB BLOOD ORDERABLES nal Result [facility] [address] [place] [address] from Last 3 Months Insurance [employer] [place] [employer] [place] Care Teams Fibreglass Laminator Relationship Specialty Start Date End Date Kami Manning NP [address] [place] [address] PCP - General Family Medicine 05/04/23 Russ Villela III, MD PhD [address] [place] [address] Radiation Oncologist Radiation Oncology 07/06/23 Jaylen Donnelly MD [address] [place] [address] Consulting Physician Endocrinology Diabetes & Metabolism 07/06/23 Loki John MD [address] [place] [address] Referring Physician Otolaryngology 08/22/24
--- OUTSIDE RECORDS SUMMARY | 2024-09-04 14:21 | XMS_ITS ---
Author Organization [facility] at the Medical Office Building Address [address] [place] [address] Care Team Providers Care Social Media Specialist Name Role Phone Kami Manning NP Primary Care Provider [phone] Tika FUNG MD PhD, Russ Smith Unavailable Jaylen Donnelly MD Unavailable [phone] Loki John MD Unavailable [phone] Active Problems Problem Noted Date Diagnosed Date Routine medical exam 03/08/2024 Assessment & Plan (03/08/2024 8:37 AM SAP BASIS CONSULTANT): CBC, CMP, lipid panel ordered. Mammogram ordered. Patient to sign release form to obtain last Pap results from her AGRICULTURE TEACHER. Adolfo completed 08/2023 repeat in 3 years. Vaccinations: Due for COVID, Shingrix,and Flu vaccines. Repeat wellness exam in one year. Morbid obesity with BMI of 50.0-59.9, adult 02/20 Assessment & Plan (03/08/2024 8:39 AM SAP BASIS CONSULTANT): Chronic, improving. Patient to continue exercising daily and making diet changes, limiting fatty foods and processed foods. Follow up in 6 months. Papillary thyroid carcinoma 07/03/2023 Mild intermittent asthma without complication Assessment & Plan (03/08/2024 8:37 AM SAP BASIS CONSULTANT): Chronic, controlled. Patient to restart Symbicort BID and continue albuterol inhaler PRN. Follow up in 6 months. Assessment & Plan (05/04/2023 4:52 PM CDT): Chronic, controlled. Patient to restart Symbicort BID and continue albuterol inhaler PRN. Follow up in 6 months. Anxiety and depression 05/04/2023 Assessment & Plan (03/08/2024 8:33 AM SAP BASIS CONSULTANT): Chronic, controlled. Patient to continue on fluoxetine 40 mg daily. Follow up in 6 months. Assessment & Plan (05/04/2023 4:40 PM CDT): Chronic, controlled. Patient to continue on fluoxetine 40 mg daily. Follow up in 6 months. Acquired hypothyroidism 05/04/2023 Assessment & Plan (03/08/2024 8:34 AM SAP BASIS CONSULTANT): Chronic, patient following with Dr. Allison endocrinology. Currently taking Synthroid 200 mcg daily. Assessment & Plan (05/04/2023 4:40 PM CDT): Chronic, improving patient following with Dr. Allison endocrinology. Currently taking levothyroxine 150 mcg daily. History of thyroid cancer 05/04/2023 Assessment & Plan (03/08/2024 8:32 AM SAP BASIS CONSULTANT): Thyroidectomy completed in 02/2023. Currently following with Dr. John ENT. Assessment & Plan (05/04/2023 4:56 PM CDT): Thyroidectomy completed in 02/2023. Currently following with Dr. John ENT. History of skin cancer 05/04/2023 Overview (05/04/2023): History of basal cell of left cheek. Patient currently following with [facility] for yearly skin checks. Assessment & Plan (03/08/2024 8:33 AM SAP BASIS CONSULTANT): History of basal cell of left cheek. Patient currently following with [facility] for yearly skin checks. Assessment & Plan (05/04/2023 4:55 PM CDT): History of basal cell of left cheek. Patient currently [facility] with [facility] for yearly skin checks. Iron deficiency anemia 05/04/2023 Assessment & Plan (03/08/2024 8:38 AM SAP BASIS CONSULTANT): Chronic, stable patient unable to tolerate oral supplements. Patient to have CBC, iron profile, and ferratin level redrawn. Follow up in 6 months. Assessment & Plan (05/04/2023 4:54 PM CDT): Chronic, stable patient unable to tolerate oral supplements. Patient to have CBC, iron profile, and ferratin level redrawn in 2 months. Current Treatment and Therapy Plans No current plan information found. Past Treatment and Therapy Plans No past plan information found. Radiation Treatments (No Episode) * Course C1 Thyroid 202306/30/2023 - 06/30/2023 Treatment Period Energy Fraction Dose Fractions Total Dose Plans Planned Thyroid1 06/30/2023 - 06/30/2023 30 Reference Points Delivered Thyroid1 06/30/2023 - 06/30/2023 30
--- OUTSIDE RECORDS SUMMARY | 2024-09-04 14:21 | XMS_ITS | Patient Health Record ---
Author Organization [facility] [facility] Address [address] [place] [address] Care Team Providers Care Solar Business Developer Name Role Phone Joseph Hopper Unavailable [phone] Reason For Referral No Information Medications Medication SIG (Take, Route, Frequency, Duration) Notes Start Date End Date Status Symbicort 80-4.5 MCG/ACT Inhalation Active Norethindrone 0.35 MG Oral Active FLUoxetine HCl 20 MG Oral Active Olopatadine HCl 0.6 % Nasal Active methylPREDNISolone 4 MG Oral Active Montelukast Sodium 10 MG Oral Active FLUoxetine HCl 40 MG Oral Active Ferrous Sulfate 325 (65 Fe) MG Oral Active Cetirizine HCl 10 MG Oral Active Plan Of Treatment No Information Insurance Providers Payer Name Payer Address Payer Phone Subscriber Number Group Number Insured Name Patient Relationship to Insured Coverage Start Date [facility]age End Date [facility] [address] [place] [address] [id number] IOANA VILLASENOR Self - patient is the insured
--- OUTSIDE RECORDS SUMMARY | 2024-09-04 14:21 | XMS_ITS | Data Portability ---
Author Organization [place] - [facility] [employer], Main Office Address [address] [place] [address] Assessment Encounter Date Assessment Date Assessment LastModified by Organization Details LastModified Time 06/03/2022 06/03/2022 FMLA completed for the following dates: 05/26/22- 3 [email or web address] Not available 06/03/2022 11:11:03 Plan of Treatment Reminders Order Date Submit Date Provider Last Modified By Organization Details Last Modified Time Details Appointments None recorded. Lab None recorded. Referral None recorded. Procedures None recorded. Surgeries None recorded. Imaging None recorded. Medication Orders prednisone 20 mg tablet 2022 023 [facility]/Pharmacy #[id number], [address] [place], [address], 3 10:04:41 Flonase Allergy Relief 50 mcg/actuati on nasal spray,suspe nsion 2022 023 [id number] [address] [place], [address], 3 10:04:41 albuterol sulfate 2.5 mg/3 mL (0.083 %) solution for nebulizatio n 2022 023 [id number] [address] [place], [address], 3 10:09:37 Patient TargetsNo targets recorded. Patient InstructionsNo instructions recorded. Reason for Referral None Reported. Results Created Date Observation Date Name Description Value Unit Range Abnormal Flag Note LastModifiedBy Organization Detail LastModifiedTime 06/22/19 22 06/22/2021 VITAM IN D,25- OH,TO INDIRA,I A vitamin D,25-oh,tota moonia 44 NG/mL 30-100 normal Vitam in D Statu s 25-OH Vitam in D: Defic iency : <20 ng/mL Insuf ficie ncy: 20 - 29 ng/mL Optim al: > or = 30 ng/mL For 25-OH Vitam in D testi ng on patie nts on D2-nelson pplem entat ion and patie nts for whom quant itati on of D2 and D3 fract ions is requi red, the [facility] Ass[facility] eD(TM ) 25-OH VIT D, (D2,D 3), LC/MS /MS is recom jah d: order code 31758 (donald ents >2yrs ). See Note 1 Note 1 For addit ional infor arleth beltran e refer to http: //[facility] charley Lawsonia gnost ics.c om/fa q/FAQ 199 (This link is being provi ded for infor sundeep patten/ educsondra mustafa purpo ses only. ) Not Available [facility] [address] [place], [address], 06/22/2021 03:15:36 06/22/19 22 06/22/2021 CBC (INCL UDES DIFF/ PLT) white blood cell count 6.1 thous and/u L 3.8-10 .8 normal Not Available [facility] [address], [address], 06/22/2021 03:15:35 06/22/19 22 06/22/2021 CBC (INCL UDES DIFF/ PLT) red blood cell count 5.16 annie on/uL 3.80-5 .10 high Not Available [facility] [address], [address], 06/22/2021 03:15:35 06/22/19 22 06/22/2021 CBC (INCL UDES DIFF/ PLT) hemoglobin 15.6 g/dL 11.7-1 5.5 high Not Available [address], [address], 06/22/2021 03:15:35 06/22/19 22 06/22/2021 CBC (INCL UDES DIFF/ PLT) hematocrit 45.8 % 35.0-4 5.0 high Not Available [address], [address], 06/22/2021 03:15:35 06/22/19 22 06/22/2021 CBC (INCL UDES DIFF/ PLT) MCV 88.8 fL 80.0-1 00.0 normal Not Available [address], [address], 06/22/2021 03:15:35 06/22/19 22 06/22/2021 CBC (INCL UDES DIFF/ PLT) MCH 30.2 pg 27.0-3 3.0 normal Not Available [address], [address], 06/22/2021 03:15:35 06/22/19 22 06/22/2021 CBC (INCL UDES DIFF/ PLT) MCHC 34.1 g/dL 32.0-3 6.0 normal Not Available [address], [address], 06/22/2021 03:15:35 06/22/19 22 06/22/2021 CBC (INCL UDES DIFF/ PLT) RDW 12.6 % 11.0-1 5.0 normal Not Available [employer] [address], [address], 06/22/2021 03:15:35 06/22/19 22 06/22/2021 CBC (INCL UDES DIFF/ PLT) platelet count 282 thous and/u L 140-40 0 normal Not Available [address], [address], 06/22/2021 03:15:35 06/22/19 22 06/22/2021 CBC (INCL UDES DIFF/ PLT) MPV 11.6 fL 7.5-12 .5 normal Not Available [address], [address], 06/22/2021 03:15:35 06/22/19 22 06/22/2021 CBC (INCL UDES DIFF/ PLT) absolute neutrophils 4343 cells /uL 1500-7 800 normal Not Available [address], [address], 06/22/2021 03:15:35 06/22/19 22 06/22/2021 CBC (INCL UDES DIFF/ PLT) absolute lymphocytes 1031 cells /uL 850-39 00 normal Not Available [address], [address], 06/22/2021 03:15:35 06/22/19 22 06/22/2021 CBC (INCL UDES DIFF/ PLT) absolute monocytes 494 cells /uL 200-95 0 normal Not Available [address], [address], 06/22/2021 03:15:35 06/22/19 22 06/22/2021 CBC (INCL UDES DIFF/ PLT) absolute eosinophils 189 cells /uL 15-500 normal Not Available [address], [address], 06/22/2021 03:15:35 06/22/19 22 06/22/2021 CBC (INCL UDES DIFF/ PLT) absolute basophils 43 cells /uL 0-200 normal Not Available [address], [address], 06/22/2021 03:15:35 06/22/19 22 06/22/2021 CBC (INCL UDES DIFF/ PLT) neutrophils 71.2 % normal Not Available [address], [address], 06/22/2021 03:15:35 06/22/19 22 06/22/2021 CBC (INCL UDES DIFF/ PLT) lymphocytes 16.9 % normal Not Available [address], [address], 06/22/2021 03:15:35 06/22/19 22 06/22/2021 CBC (INCL UDES DIFF/ PLT) monocytes 8.1 % normal Not Available [facility] [address], [address], 06/22/2021 03:15:35 06/22/19 22 06/22/2021 CBC (INCL UDES DIFF/ PLT) eosinophils 3.1 % normal Not Available [address], [address], 06/22/2021 03:15:35 06/22/19 22 06/22/2021 CBC (INCL UDES DIFF/ PLT) basophils 0.7 % normal Not Available [address], [address], 06/22/2021 03:15:35 06/22/19 22 06/22/2021 HEPAT IC FUNCT ION PANEL protein, total 6.0 g/dL 6.1-8. 1 low Not Available [address], [address], 06/22/2021 03:15:35 06/22/19 22 06/22/2021 HEPAT IC FUNCT ION PANEL albumin 3.6 g/dL 3.6-5. 1 normal Not Available [address], [address], 06/22/2021 03:15:35 06/22/19 22 06/22/2021 HEPAT IC FUNCT ION PANEL globulin 2.4 g/dL_ (calc ) 1.9-3. 7 normal Not Available [address] [address] [place], [address], 06/22/2021 03:15:35 06/22/19 22 06/22/2021 HEPAT IC FUNCT ION PANEL albumin/glob ulin ratio 1.5 (calc ) 1.0-2. 5 normal Not Available [address], [address], 06/22/2021 03:15:35 06/22/19 22 06/22/2021 HEPAT IC FUNCT ION PANEL bilirubin, total 0.5 mg/dL 0.2-1. 2 normal Not Available [address], [address], 06/22/2021 03:15:35 06/22/19 22 06/22/2021 HEPAT IC FUNCT ION PANEL bilirubin, direct 0.1 mg/dL < or = 0.2 normal Not Available [address] [address] [place], [address], 06/22/2021 03:15:35 06/22/19 22 06/22/2021 HEPAT IC FUNCT ION PANEL bilirubin, indirect 0.4 mg/dL _(concepcion c) 0.2-1. 2 normal Not Available [address], [address], 06/22/2021 03:15:35 06/22/19 22 06/22/2021 HEPAT IC FUNCT ION PANEL alkaline phosphatase 71 U/L 31-125 normal Not Available [facility] [employer] [place] [address] [address] [place], [address], 06/22/2021 03:15:35 06/22/19 22 06/22/2021 HEPAT IC FUNCT ION PANEL AST 10 U/L 10-35 normal Not Available [address], [address], 06/22/2021 03:15:35 06/22/19 22 06/22/2021 HEPAT IC FUNCT ION PANEL ALT 6 U/L 6-29 normal Not Available [address], [address], 06/22/2021 03:15:35 06/22/19 22 06/22/2021 HEPAT IC FUNCT ION PANEL comment We recei pari your handw ritte n test order and perfo rmed the AMA defin ed Hepat ic Funct ion Panel . If this is not what you inten ded to order , pleas e conta ct your local clien t servi ce repre senta tive immed iatel y so that we may adjus t our terrie ng appro girffinat onofre. You may also inqui re about alter nativ e or addit ional testi ng. Not Available [address], [address], 06/22/2021 03:15:35 06/22/19 22 06/22/2021 BASIC METAB OLIC PANEL glucose 94 mg/dL 65-99 normal Fasti ng refer ence inter ashutosh Not Available [address], [address], 06/22/2021 03:15:35 06/22/19 22 06/22/2021 BASIC METAB OLIC PANEL urea nitrogen (BUN) 13 mg/dL 7-25 normal Not Available [address], [address], 06/22/2021 03:15:35 06/22/19 22 06/22/2021 BASIC METAB OLIC PANEL creatinine 0.84 mg/dL 0.50-1 .10 normal Not Available [address], [address], 06/22/2021 03:15:35 06/22/19 22 06/22/2021 BASIC METAB OLIC PANEL eGFR non-afr. gabonese 82 mL/mi n/1.7 3m2 > or = 60 normal Not Available [address], [address], 06/22/2021 03:15:35 06/22/19 22 06/22/2021 BASIC METAB OLIC PANEL eGFR 95 mL/mi n/1.7 3m2 > or = 60 normal Not Available [address], [address], 06/22/2021 03:15:35 06/22/19 22 06/22/2021 BASIC METAB OLIC PANEL BUN/creatini ne ratio not applic able (calc ) 6-22 Not Available [address], [address], 06/22/2021 03:15:35 06/22/19 22 06/22/2021 BASIC METAB OLIC PANEL sodium 140 mmol/ L 135-14 6 normal Not Available [address], [address], 06/22/2021 03:15:35 06/22/19 22 06/22/2021 BASIC METAB OLIC PANEL potassium 4.3 mmol/ L 3.5-5. 3 normal Not Available [address], [address], 06/22/2021 03:15:35 06/22/19 22 06/22/2021 BASIC METAB OLIC PANEL chloride 107 mmol/ L 98-110 normal Not Available [address], [address], 06/22/2021 03:15:35 06/22/19 22 06/22/2021 BASIC METAB OLIC PANEL carbon dioxide 27 mmol/ L 20-32 normal Not Available [address], [address], 06/22/2021 03:15:35 06/22/19 22 06/22/2021 BASIC METAB OLIC PANEL calcium 8.9 mg/dL 8.6-10 .2 normal Not Available [facility] [address] [place], [address], 06/22/2021 03:15:35 06/22/19 22 06/22/2021 LIPID PANEL , STAND TRAVIS cholesterol, total 174 mg/dL <200 normal Not Available [facility] [address] [place], [address], 06/22/2021 03:15:34 06/22/19 22 06/22/2021 LIPID PANEL , STAND TRAVIS HDL cholesterol 40 mg/dL > or = 50 low Not Available [facility] [place] [address] [place], [address], 06/22/2021 03:15:34 06/22/19 22 06/22/2021 LIPID PANEL , STAND TRAVIS triglyceride s 86 mg/dL <150 normal Not Available [facility] [place] [address] [place], [address], 06/22/2021 03:15:34 06/22/19 22 06/22/2021 LIPID PANEL , STAND TRAVIS LDL-choleste rol 115 mg/dL _(concepcion c) high Refer ence range : <100 Galen able range <100 mg/dL for prima ry preve ntion ; <70 mg/dL for patie nts with CHD or diabe tic patie nts with > or = 2 CHD risk facto rs. LDL-C is now calcu lated using the Maura n-Hop kins gonsalou yennifer n, which is a valid ated novel metho d fernandoi higinio hutchins r accur acy than the Fried robbie equat ion in the estim ation of LDL-C . Maura alcocer SS et al. ALVARADO. 2013; 310(1 9): 2061- 2068 (http ://ed ucati on.Qu Laurel rayas. com/f aq/FA Q164) Not Available [facility] [address] [address], [place], [address], 06/22/2021 03:15:34 06/22/1906/22/2021 LIPID PANEL , STAND TRAVIS chol/HDLC ratio 4.4 (calc ) <5.0 normal Not Available [facility] [address] [place], [address], 06/22/2021 03:15:34 06/22/19 22 06/22/2021 LIPID PANEL , STAND TRAVIS non HDL cholesterol 134 mg/dL _(concepcion c) <130 high For patie nts with diabe val plus 1 major ASCVD risk facto r, treat ing to a non-H DL-C goal of <100 mg/dL (LDL- C of <70 mg/dL ) is consi dered a thera peuti c optio n. Not Available [facility] [address] [address] , [place], [address], 06/22/2021 03:15:34 07/01/19 22 06/30/2021 rapid flu (A+B) Flu A negati ve Not Available [facility] , [address], [place], [address], 06/30/2021 09:35:31 07/01/19 22 06/30/2021 rapid flu (A+B) Flu B negati ve Not Available [address] , [address], [place], [address], 06/30/2021 09:35:31 05/27/19 23 05/25/2022 US, thyro id No observ ation record ed. [email or web address] [facility] [address], [place], [address], 05/30/2022 20:05:58 07/22/19 23 07/20/2022 MAMMO , scree milly, digit al, bilat eral No observ ation record ed. [facility] [address] [facility] [address], [place], [address], 07/21/2022 10:50:50 08/05/1908/04/2022 fine needl e aspir ation , ultra sound guide d, thyro id (PROC ) No observ ation record ed. [email or web address] [address] [facility], [place], [address], 08/04/2022 16:01:30 08/30/19 23 08/25/2022 US, head + neck, soft tissu e No observ ation record ed. [email or web address] [address], [place], [address], 08/29/2022 10:16:02 11/13/19 23 11/11/2022 fine needl e aspir ation , thyro id (PROC ) No observ ation record ed. [email or web address] [address], [place], [address], 11/14/2022 08:42:23 Result Notes None recorded. Problems Name Problem SNOMED Code Status Onset Date Resolution Date Notes Provider Name and Address Organization Details Recorded Time Mixed anxiety and depressive disorder 292264651 Active 2020 Not Available [facility] 3 21:00:29 Basal cell carcinoma of skin 667573178 Active 2020 Not Available [facility] 3 21:00:29 Hypertriglyce ridemia 735004206 Active 2019 Not Available [facility] 3 21:00:29 Vitamin D deficiency 29967804 Active 2020 Not Available [facility] 3 21:00:29 Iron deficiency 23974561 Active 2019 Not Available [facility] 3 21:00:29 Allergic rhinitis 30369000 Active 2019 Not Available [facility] 3 21:00:29 Suicide attempt Active 2020 Not Available [facility] 3 21:00:30 Iron deficiency anemia 57320568 Active 2020 Not Available [facility] 3 21:00:30 Seasonal allergy 813408623 Active 2022 [facility] [address], [place], [address] , [facility] 3 09:59:17 Wheezing 41861890 Active 2022 YRN [facility] [address], [place], [address] , [facility] 3 10:06:23 Multinodular goiter 500819233 Active 2022 [facility]RN [facility] [address], [place], [address] , [facility] [employer] [facility] 3 11:10:07 Problem Notes None recorded. Medical Equipment None Reported. Allergies No known drug allergies Medications Name Sig Start Date Stop Date Status Note LastModified by Organization Details LastModified Time fluoxetine 40 mg capsule TAKE 1 CAPSULE BY MOUTH EVERY DAY 2022 active Not Available Not Available Not Avai lable doxycycline hyclate 100 mg capsule TAKE 1 CAPSULE BY MOUTH TWICE A DAY FOR 7 DAYS 01/12 completed Not Available Not Available Not Available ipratropium 0.5 mg-albutero l 3 mg (2.5 mg base)/3 mL nebulizatio n soln Inhale 3 mL every day by nebulizat ion route for 1 day. 10/01 completed Not Available Not Available Not Available albuterol sulfate 2.5 mg/3 mL (0.083 %) solution for nebulizatio n Inhale 3 mL every 4-6 hours by nebulizat ion route as needed. active Not Available Not Available No t Available cetirizine 10 mg tablet TAKE 1 TABLET BY MOUTH EVERY DAY active Not Available Not Available No t Available azithromyci n 250 mg tablet TAKE 2 TABLETS BY MOUTH TODAY, THEN TAKE 1 TABLET DAILY FOR 4 DAYS 01/12 completed Not Available Not Available Not Available benzonatate 200 mg capsule TAKE 1 CAPSULE BY MOUTH THREE TIMES A DAY FOR 5 DAYS 01/12 completed Not Available Not Available Not Available promethazin e 6.25 mg/5 mL oral syrup TAKE 5 ML (ORAL) EVERY 6 HOURS FOR 5 DAYS 01/12 completed Not Available Not Available Not Available prednisone 20 mg tablet TAKE 3 TABS DAILY X 3 DAYS, 2 TABS A DAY X 3 DAYS, 1 TAB A DAY X 3 DAYS, THEN 1/2 TAB X 3 DAYS &STOP active Not Available Not Available No t Available Kenalog 40 mg/mL suspension for injection Take 1 mL every day by injection route for 1 day. 02/07 completed Not Available Not Available Not Available ferrous sulfate 325 mg (65 mg iron) tablet TAKE 1 TABLET BY MOUTH TWICE A DAY active Not Available Not Available No t Available montelukast 10 mg tablet TAKE 1 TABLET BY MOUTH AT BEDTIME 03/29 completed Not Available Not Available Not Available methylpredn isolone 4 mg tablets in a dose pack TAKE 6 TABLETS ON DAY 1 DIRECTED ON PACKAGE AND DECREASE BY 1 TAB EACH DAY FOR A TOTAL OF 6 DAYS 01/12 completed Not Available Not Available Not Available albuterol sulfate HFA 90 mcg/actuati on aerosol inhaler INHALE 2 PUFFS EVERY 4-6 HOURS BY INHALATIO N ROUTE NEEDED. active Not Available Not Available No t Available norethindro ne (contracept lynsey) 0.35 mg tablet TAKE 1 TABLET BY MOUTH EVERY DAY active Not Available Not Available No t Available fluoxetine 20 mg capsule TAKE 1 CAPSULE BY MOUTH EVERY DAY 11/16 completed Not Available Not Available Not Available fluticasone propionate 50 mcg/actuati on nasal spray,suspe nsion 1 spray in each nostril every day active Not Available Not Available No t Available Fish Oil 10/01 completed Not Available Not Available Not Available iron 04/30 completed Not Available Not Available Not Available multivitami n 10/01 completed Not Available Not Available Not Available Symbicort 80 mcg-4.5 mcg/actuati on HFA aerosol inhaler TAKE 2 PUFFS BY MOUTH TWICE A DAY active Not Available Not Available No t Available olopatadine 0.6 % nasal spray SPRAY 2 SPRAYS INTO EACH NOSTRIL TWICE A DAY 03/29 completed Not Available Not Available Not Available Lo Loestrin Fe 1 mg-10 mcg (24)/10 mcg (2) tablet TAKE 1 TABLET BY MOUTH EVERY DAY 04/30 completed Not Available Not Available Not Available biotin-mackenzie tin 10/01 completed Not Available Not Available Not Available Afluria Quad (PF) 60 mcg (15 mcg x 4)/0.5 mL IM syringe ADM 0.5ML IM UTD 06/26 completed Not Available Not Available Not Available Afluria Qd 2018- (36 mos up)(PF)60 mcg (15 mcg x4)/0.5 mL IM syringe active Not Available Not Available N ot Available [employer] COVID-19 Antigen Home Test kit TEST DIRECTED TODAY 06/03 completed Not Available Not Available Not Available Vitals Date Recorded Body mass index (BMI) Body height Oxygen saturation Oxygen saturation in Arterial blood by Pulse oximetry Heart rate Body temperature Body weight Systolic And Diastolic Provider Name and Address Organization Details Last Updated DateTime 3 47.2 kg/m2 171.45 cm 97 % 97 % 87 /min 96.4 [degF] 411388. 27 g 138/96 mm[Hg] Not Available [facility] 3 20:59:41 Date Recorded Body height Body mass index (BMI) Body weight Body temperature Heart rate Oxygen saturation Oxygen saturation in Arterial blood by Pulse oximetry Systolic And Diastolic Provider Name and Address Organization Details Last Updated DateTime 3 171.45 cm 29.6 kg/m2 56745.7 4 g 96.6 [degF] 101 /min 99 % 99 % 116/80 mm[Hg] Rosy Batres MA [place] - [facility] 3 09:52:01 Date Recorded Body mass index (BMI) Body height Oxygen saturation Oxygen saturation in Arterial blood by Pulse oximetry Heart rate Body temperature Body weight Systolic And Diastolic Provider Name and Address Organization Details Last Updated DateTime 2 42.7 kg/m2 171.45 cm 97 % 97 % 89 /min 96.5 [degF] 608647. 09 g 126/84 mm[Hg] Not Available [facility] 3 20:59:41 Date Recorded Body mass index (BMI) Body height Oxygen saturation Oxygen saturation in Arterial blood by Pulse oximetry Heart rate Body temperature Body weight Systolic And Diastolic Provider Name and Address Organization Details Last Updated DateTime 2 42.4 kg/m2 171.45 cm 96 % 96 % 95 /min 97.6 [degF] 627093. 9 g 126/82 mm[Hg] Not Available [facility] 3 20:59:41 Date Recorded Body mass index (BMI) Body height Oxygen saturation Oxygen saturation in Arterial blood by Pulse oximetry Heart rate Body temperature Body weight Systolic And Diastolic Provider Name and Address Organization Details Last Updated DateTime 2 44.9 kg/m2 171.45 cm 99 % 99 % 85 /min 97.5 [degF] 865498. 66 g 120/80 mm[Hg] Not Available [facility] 3 20:59:41 Social History Question Answer Notes LastModified by [employer] Details LastModified Time Tobacco Smoking Status Former Smoker [facility]ena hein [facility] [employer] 06/03/2022 09:40:28 What Is Your Level Of Caffeine Consumption? Moderate [id number] Information not available 04/20/2022 In The 14 Days Before Symptom Onset, Have You Had Close Contact With A Laboratory-confir med COVID-19 While That Case Was Ill? No [email or web address] Information not available 06/03/2022 In The 14 Days Before Symptom Onset, Have You Had Close Contact With A Person Who Is Under Investigation For COVID-19 While That Person Was Ill? No [email or web address] Information not available 06/03/2022 What Type Of Diet Are You Following? REGULAR [id number] Information not available 04/20/2022 What Was The Date Of Your Most Recent Tobacco Screening? 04/30/2020 Information not available 06/03/2022 Have You Ever Been Counseled For Unhealthy Alcohol Use? No [email or web address] Information not available 06/03/2022 Do You Use Your Seat Belt Or Car Seat Routinely? Yes Information not available 06/03/2022 Do You Participate In Social Media? Yes Sometimes [email or web address] Information not available 06/03/2022 Has Tobacco Cessation Counseling Been Provided? No [email or web address] Information not available 06/03/2022 How Many Years Have You Smoked Tobacco? 2 [email or web address] Information not available 06/03/2022 Have You Recently Traveled Abroad? No Information not available 06/03/2022 Do You Have Any Dietary Restrictions? No [email or web address] Information not available 06/03/2022 Sex: Female Functional Status Question Answer Note LastModified by Organizat ion Details LastModified Time Do you use any illicit or recreational drugs? No Information not available 06/03/2022 Do you or have you ever used any other forms of tobacco or nicotine? No Information not available 06/03/2022 What is your level of alcohol consumption? Occasional [id number] Information not available 04/20/2022 What is your exercise level? Occasional [id number] Information not available 04/20/2022 Mental Status Question Answer Note LastModified by Organization D etails LastModified Time Do you feel stressed (tense, restless, nervous, or anxious, or unable to sleep at night)? [id number] [email or web address] Information not available 06/03/2022 Family History Relationship Description Onset Age of this Age Resolved Age Notes LastModified by Organization Details LastModified Time Father Diabetes mellitus [id number] Not available 04/20/2022 20:59:03 Father Cerebrovascu lar accident [email or web address] Not available 09:40:25 Mother Malignant neoplasm of appendix [email or web address] Not available 2022 09:40:25 Medical History Condition Response BLINDNESS N RHEUMATIC FEVER N KIDNEY STONES N BLADDER PROBLEMS N OTHER # 1 N POLIO N LUNG DISEASE/DISORDER N RADIATION / CHEMOTHERAPY N COPD N Other # 2 N BLOOD DISEASES N SURGERY N EAR OR HEARING PROBLEMS N MUMPS N BOWEL PROBLEMS N FEMALE PROBLEMS / INFECTIONS N DEPRESSION (INCLUDING POST ) N STROKE/TIA N THYROID DISEASE N ULCERS N BENIGN PROSTATIC HYPERPLASIA N MEASLES N CERVICALGIA N TB SKIN TEST N MYOCARDIAL INFARCTION N PARAPELGIA N OBESITY N GERD/NAUSEA N ANEURYSM N URINARY/BLADDER/KIDNEY PROBLEMS N INPATIENT PSYCH CARE N CORONARY ARTERY DISEASE (CAD) N MENIERE'S DISEASE N ADDICTION CONCERNS N ENDOMETRIOSIS N USE OF BLOOD THINNERS N SKIN PROBLEMS N EMPHYSEMA N GASTROINTESTINAL DISORDER N MUSCLE,JOINT OR BONE PROBLEMS N GASTROINTESTINAL BLEEDING N BLOOD CLOTS N ASTHMA N CATARACTS N ERECTILE DYSFUNCTION N GI PROBLEMS N CHF N Low Testosterone N NEUROPATHY N INFERTILITY N AIDS/HIV N FRACTURES N VISION/EYE PROBLEMS N LIVER DISEASE N MALE HYPOGONADISM N HYPERTENSION N ANXIETY DISORDER N BLOOD TRANSFUSION N ANEMIA/BLOOD DISORDER Y CHRONIC EAR INFECTIONS N BRONCHITIS N TUBERCULOSIS N GLAUCOMA N FOOT PROBLEM N DIVERTICULITIS N CHICKENPOX N SLEEP APNEA N ALLERGIES/HAYFEVER Y INFECTIOUS DISEASE N HEART ARRHYTHMIA N PROSTATE N INSOMNIA N HIGH CHOLESTEROL / HYPERLIPIDEMIA Y HYPERTHYROIDISM N EYE PROBLEMS N EATING DISORDER N NEUROLOGICAL PROBLEMS N EDEMA N CHRONIC PAIN SYNDROME N HYPOTHYROIDISM N CAROTID BLOCKAGE N CONSTIPATION N BACK / NECK PROBLEMS N HAVE YOU BEEN HOSPITALIZED OR SEEN IN [facility] IN THE PAST YEAR ? N ATHEROSCLEROSIS N BREAST PROBLEMS N DIALYSIS N ECZEMA N FIBROMYALGIA N OSTEOPOROSIS N ARTHRITIS N NO SIGNIFICANT PAST MEDICAL HISTORY N APPENDICITIS N DIABETES, TYPE N BAD TEETH N HEARTBURN / REFLUX N ADD/ADHD N AUTISM SPECTRUM DISORDER (ASD) N HEPATITIS / LIVER DISEASE N PULMONARY DISEASE N GOUT N SLEEP DISORDER N ALZHEIMER'S DISEASE N PAIN N HERPES N DEMENTIA N HEADACHES/MIGRAINES N SEIZURES/EPILEPSY N VASCULAR DISEASE N PACEMAKER N DIZZINESS N HEART DISEASE/HEART PROBLEMS N KIDNEY DISEASE N DEVELOPMENTAL OR BEHAVIORAL DISORDERS N MULTIPLE SCLEROSIS N SCARLET FEVER N MENTAL DISORDER/ILLNESS N CARDIAC ARRHYTHMIA N CANCER: SPECIFY N ANESTHESIA COMPLICATIONS N PNEUMONIA N ATRIAL FIBRILLATION N PULMONARY EMBOLISM N AUTOIMMUNE DISEASE N Gynecological HistoryNo gynecological history recorded. Obstetrics History GPAL:G 0 P 0 0 0 0 Immunizations Vaccine Type Date Status Note Provider Nam e and Address Organization Details Recorded Time COVID-19, mRNA, LNP-S, bivalent, PF, 10 mcg/0.2 mL dose 2 completed Not Available [facility] 04/20/2022 21:02:25 influenza, unspecified formulation 2 completed Not Available [facility] 04/20/2022 21:02:25 COVID-19, mRNA, LNP-S, PF, 30 mcg/0.3 mL dose 2 completed Not Available [facility] 04/20/2022 21:02:25 pneumococcal polysaccharide PPV23 0 completed Not Available [facility] 04/20/2022 21:02:25 Influenza, split virus, quadrivalent, preservative 9 completed Not Available [facility] 04/20/2022 21:02:26 Past Encounters Encounter ID Performer Location Encounter Start Date Encounter Closed Date Diagnosis/Indication Diagnosis SNOMED-CT Code Diagnosis ICD10 Code Diagnosis Note [id number] [facility] Kranthi [place] [address] [place] [address] 04/30/2020 00:00:00 04/30/2020 15:44:11 [id number] [facility] [place] [address] [place] [address] 10/01/2020 00:00:00 10/01/2020 16:43:50 [id number] [facility] [place] [address] [place] [address] 10/08/2020 00:00:00 10/12/2020 08:32:58 [id number] [facility] [place] [address] [place] [address] 10/22/2020 00:00:00 10/22/2020 16:04:47 [id number] [facility] [place] [address] [place] [address] 11/05/2020 00:00:00 11/05/2020 16:08:50 [id number] [facility] [place] [address] [place] [address] 11/16/2020 00:00:00 11/16/2020 16:24:15 [id number] [facility] [place] [address] [place] [address] 12/24/2020 00:00:00 12/24/2020 14:40:11 [id number] [facility] [place] [address] [place] [address] 06/17/2021 00:00:00 06/17/2021 12:17:[id number] [facility] [place] [address] [place] [address] 06/30/2021 00:00:00 06/30/2021 09:42:51 [id number] Shantell Friedman MD [facility] Family [facility] [place] [address] [facility] [place] [address] 01/12/2022 00:00:00 01/12/2022 10:47:[id number] [facility] Primary Care Princess horvath [address] [facility] [address] [place] [address] 03/29/2022 00:00:00 03/29/2022 15:22:[id number] [facility] Primary Care Princess horvath [address] [facility] [address] [place] [address] 06/03/2022 09:38:40 06/03/2022 10:22:02 Seasonal allergy [id number] J30.2 Worse in spring and fall. Continue daily cetirizine and inhalers. She states she was on montelukas t in the past but she was taken off it for SI. She has been on periods of steroids in the past which helps temporaril y. Also encouraged she use flonase on a regular basis. Offered saxophone teacher referral but she declined at this time, will send referral in the future if she would like to be evaluated further. Wheezing [id number] R06.2 Lungs currently clear on exam. Will send orders for nebulizer, states she tried to get one previously but could not get it covered by insurance. Multinodular goiter [phone] [id number] E04.2 Thyroid US ordered by dyer helper. Will f/u with them about results. Health Concerns Section Related Observation LastModified by Organization Detai ls LastModified Time None Recorded Concern Status LastModified by Organization Details LastModified Time None Recorded Advance Directives Directive None Recorded Payers Insurance Date Sequence Insurance Name Policy Number Policy Vidal Covered Member ID Vidal Member ID Guarantor Name 06/14/2022 1 [place] [id number] Vanda Hurt [id number] Vanda Hurt Notes Date Note Type Note Provider Name and Address Organization Details Recorded Time 06/03/2022 text/html Pt. here for multiple complaints.-She has been having sinus headaches, itchy/watery eyes, post-nasal drip, SOB/mild wheezing at night. She has been taking cetirizine. Using symbicort and albuterol.-She has been out of work since 05/26/22-06/03/22. She states she has been out due to allergies and stress over recent test results. Gynecology ordered thyroid ultrasound. YRN Witt [address] [facility] [address], [place], [address], [facility] 06/03/2022 11:11:36 OBGyn Episode No OBEpisode recorded.
--- OUTSIDE RECORDS SUMMARY | 2024-09-04 14:21 | XMS_ITS | Referral Summary ---
Author Organization [facility] Address [address] [place] [address] Care Team Providers Care Outcomes Analyst Name Role Phone Kami Manning NP Primary Care Provider [phone] Tika FUNG MD PhD, Russ Smith Unavailable Jaylen Donnelly MD Unavailable [phone] Loki John MD Unavailable [phone] Encounters Date Type Department Care Team Description 08/22/2024 1:00 PM CDT Office Visit [facility] Radiation Oncology [address] [facility] [place] [address] Vivian Ragsdale PA Papillary thyroid carcinoma (HCC) (Primary Dx) 08/22/2024 9:23 AM CDT - 08/22/2024 11:59 PM CDT Hospital Encounter [facility] [address] [place] [address] Discharge Disposition: Discharge to home or self care 08/20/2024 11:49 AM CDT - 08/20/2024 11:59 PM CDT Hospital Encounter [facility] Radiology [address] [place] [address] Malignant neoplasm of thyroid gland (HCC) Discharge Disposition: Discharge to home or self care 08/05/2024 Orders Only [facility] Radiation Oncology [address] [facility] [place] [address] Vivian Ragsdale PA 06/26/2024 Orders Only [facility] Radiation Oncology [address] [facility] [place] [address] Vivian Ragsdale PA Malignant neoplasm of thyroid gland (HCC) (Primary Dx) from Last 3 Months Allergies No known [...] 03/08/2024 Assessment & Plan (03/08/2024 8:37 AM PANEL LAY UP WORKER): CBC, CMP, lipid panel ordered. Mammogram ordered. Patient to sign release form to obtain last Pap results from her [facility]. Cologuard completed 08/2023 repeat in 3 years. Vaccinations: Due for COVID, Shingrix,and Flu vaccines. Repeat wellness exam in one year. Morbid obesity with BMI of 50.0-59.9, adult 02/20 Assessment & Plan (03/08/2024 8:39 AM PANEL LAY UP WORKER): Chronic, improving. Patient to continue exercising daily and making diet changes, limiting fatty foods and processed foods. Follow up in 6 months. Papillary thyroid carcinoma 07/03/2023 Mild intermittent asthma without complication Assessment & Plan (03/08/2024 8:37 AM PANEL LAY UP WORKER): Chronic, controlled. Patient to restart Symbicort BID and continue albuterol inhaler PRN. Follow up in 6 months. Assessment & Plan (05/04/2023 4:52 PM CDT): Chronic, controlled. Patient to restart Symbicort BID and continue albuterol inhaler PRN. Follow up in 6 months. Anxiety and depression 05/04/2023 Assessment & Plan (03/08/2024 8:33 AM PANEL LAY UP WORKER): Chronic, controlled. Patient to continue on fluoxetine 40 mg daily. Follow up in 6 months. Assessment & Plan (05/04/2023 4:40 PM CDT): Chronic, controlled. Patient to continue on fluoxetine 40 mg daily. Follow up in 6 months. Acquired hypothyroidism 05/04/2023 Assessment & Plan (03/08/2024 8:34 AM PANEL LAY UP WORKER): Chronic, patient following with Dr. Keegan higginbotham. Currently taking Synthroid 200 mcg daily. Assessment & Plan (05/04/2023 4:40 PM CDT): Chronic, improving patient following with Dr. Keegan higginbotham. Currently taking levothyroxine 150 mcg daily. History of thyroid cancer 05/04/2023 Assessment & Plan (03/08/2024 8:32 AM PANEL LAY UP WORKER): Thyroidectomy completed in 02/2023. Currently following with Dr. Alvaro MCRAE. Assessment & Plan (05/04/2023 4:56 PM CDT): Thyroidectomy completed in 02/2023. Currently following with Dr. Alvaro MCRAE. History of skin cancer 05/04/2023 Overview (05/04/2023): History of basal cell of left cheek. Patient currently following with [facility] for yearly skin checks. Assessment & Plan (03/08/2024 8:33 AM PANEL LAY UP WORKER): History of basal cell of left cheek. Patient currently following with [facility] for yearly skin checks. Assessment & Plan (05/04/2023 4:55 PM CDT): History of basal cell of left cheek. Patient currently following with [facility] for yearly skin checks. Iron deficiency anemia 05/04/2023 Assessment & Plan (03/08/2024 8:38 AM PANEL LAY UP WORKER): Chronic, stable patient unable to tolerate oral supplements. Patient to have CBC, iron profile, and ferratin level redrawn. Follow up in 6 months. Assessment & Plan (05/04/2023 4:54 PM CDT): Chronic, stable patient unable to tolerate oral supplements. Patient to have CBC, iron profile, and ferratin level redrawn in 2 months. Immunizations Immunization Administration Dates Next Due COVID-19 mRNA ([facility]) 0.3 m L (30 mcg) vaccine (12 [...] on file Legal Sex Female 2:15 AM PANEL LAY UP WORKER Gender Identity Not on file Sexual Orientation Not on file Last Filed Vital Signs Vital Sign Reading Time Taken Comments Blood Pressure 124/84 03/04/2024 3:43 PM PANEL LAY UP WORKER Pulse 97 03/04/2024 3:43 PM PANEL LAY UP WORKER Temperature 36.6 C (97.8 F) 03/04/2024 3:43 PM PANEL LAY UP WORKER Respiratory Rate 20 03/04/2024 3:43 PM PANEL LAY UP WORKER Oxygen Saturation 98% 03/04/2024 3:43 PM PANEL LAY UP WORKER Inhaled Oxygen Concentration - - Weight 139.3 kg (307 lb) 08/22/2024 1:46 PM CDT Height 166.4 cm (5' 5.5) 08/22/2024 1:46 PM CDT Body Mass Index 50.31 08/22/2024 1:46 PM CDT Plan of Treatment Not on file Procedures Procedure Name Priority Date/Time Associated Diagnosis [...] ab <1 < or = 1 IU/mL [facility] Blood 08/19/2024 6:09 AM CDT 08/19/2024 6:10 AM CDT Vivian POOL LAB BLOOD ORDERABLES Fi nal Result [facility] [address] [facility] [place] [address] * Thyroglobulin (08/19/2024 6:09 AM CDT) Thyroglobulin, lc/ms/ms <0.4 ng/mL [facility], Comment: Reference Range: Athyrotic: <0.4 Reference range [...] analytical performance characteristics have been determined by [facility]. It has not been cleared or approved by the FDA. This assay has been validated pursuant to the CLIA regulations and is used for clinical purposes. Blood 08/19/2024 6:09 AM CDT 08/19/2024 6:10 AM CDT Vivian POOL LAB BLOOD ORDERABLES Fi nal Result Performing Organization Address City/[facility]/ZIP Co de Phone Number [facility], [address] [place] [address] * hCG, blood, quantitative (08/19/2024 6:09 AM CDT) HCG, quant <5 mIU/mL [facility] Comment: Reference Range Non or premenopausal <5 Postmenopausal <10 Values from different assay methods may vary. The use of this assay to monitor or to diagnose patients with cancer or any condition unrelated to has not been cleared or approved by the FDA or the biscuit maker of the assay. Blood 08/19/2024 6:09 AM CDT 08/19/2024 6:10 AM CDT Vivian Roshan Rags[place] LAB BLOOD ORDERABLES Fi nal Result Performing Organization Address [facility] de Phone Number [facility] [address] [place] [address] * (ABNORMAL) TSH (08/19/2024 6:09 AM CDT) Pathologist [facility] TSH 37.82(H) mIU/L [facility] Comment: Reference Range > or = 20 Years 0.40-4.50 Ranges First trimester 0.26-2.66 Second trimester 0.55-2.73 Third trimester 0.43-2.91 Blood 08/19/2024 6:09 AM CDT 08/19/2024 6:10 AM CDT Vivian Roshan [place] LAB BLOOD ORDERABLES nal Result Performing Organization Address [facility] Phone Number [facility] [address] [place] [address] * (ABNORMAL) Thyroglobulin, Thyroglobulin Antibodies (08/05/2024 6:30 AM CDT) [facility] Thyroglobulin ab <1 < or = 1 IU/mL [facility] Thyroglobulin <0.1(L) ng/mL [facility] Comment: Reference Range: Intact Thyroid 2.8-40.9 Athyrotic <0.1 Note: Abnormal flagging is based on the reference interval for patients with intact thyroid. This test was performed using the Trevor Noa chemiluminescent method. Values obtained from different assay methods cannot be used interchangeably. Thyroglobulin levels, regardless of value, should not be interpreted as absolute evidence of the presence or absence of disease. For additional information, please refer to http://education.GotoTel/faq/FFF692 (This link is being provided for informational/ educational purposes only.) 08/05/2024 6:30 AM CDT 08/05/2024 6:31 AM CDT Narrative [facility] - 08/07/2024 8:46 AM CDT FASTING:YES FASTING: YES Vivian POOL LAB BLOOD ORDERABLES Fi nal Result [facility] [address] [place] [address] * hCG, blood, qualitative (08/05/2024 6:30 AM CDT) Pathologist [facility] HCG, qual NEGATIVE See Note: [facility] Comment: Reference Range: Reference Range Non-: Negative : Positive 08/05/2024 6:30 AM CDT 08/05/2024 6:31 AM CDT Narrative [facility] - 08/07/2024 8:46 AM CDT FASTING:YES FASTING: YES Vivian POOL LAB BLOOD ORDERABLES Fi nal Result Performing Organization Address [facility] Co de Phone Number [facility] [address] [place] [address] * T3, free (08/05/2024 6:30 AM CDT) Pathologist [facility] Free T3 3.3 2.3 - 4.2 pg/mL [facility] 08/05/2024 6:30 AM CDT 08/05/2024 6:31 AM CDT Narrative [facility] - 08/07/2024 8:46 AM CDT FASTING:YES FASTING: YES Vivian POOL LAB BLOOD ORDERABLES Fi nal Result Performing Organization Address City/[facility] Co de Phone Number [facility] [address] [place] [address] * (ABNORMAL) TSH (08/05/2024 6:30 AM CDT) TSH 0.10(L) mIU/L [facility] Comment: Reference Range > or = 20 Years 0.40-4.50 Ranges First trimester 0.26-2.66 Second trimester 0.55-2.73 Third trimester 0.43-2.91 08/05/2024 6:30 AM CDT 08/05/2024 6:31 AM CDT Narrative [facility] - 08/07/2024 8:46 AM CDT FASTING:YES FASTING: YES Vivian POOL LAB BLOOD ORDERABLES Fi nal Result Performing Organization Address [facility]/ZIP Co de Phone Number [facility] [address] [place] [address] * T4, free (08/05/2024 6:30 AM CDT) Free T4 1.8 0.8 - 1.8 ng/dL [facility] 08/05/2024 6:30 AM CDT 08/05/2024 6:31 AM CDT Narrative [facility] - 08/07/2024 8:46 AM CDT FASTING:YES FASTING: YES Vivian POOL LAB BLOOD ORDERABLES Fi nal Result Performing Organization Address [facility]/ZIP Co de Phone Number [facility] [address] [place] [address] from Last 3 Months Insurance [facility] Care Teams Outcomes Analyst Relationship Specialty Start Date End Date Kami Manning NP [address] [place] [address] [phone] PCP - General Family Medicine 05/04/23 Russ Villela III, MD PhD [address] [place] [address] [phone] Radiation Oncologist Radiation Oncology 07/06/23 Jaylen Donnelly MD [address] [place] [address] [phone] Consulting Physician Endocrinology Diabetes & Metabolism 07/06/23 Loki John MD [address] [place] [address] Referring Physician Otolaryngology 08/22/24
--- OUTSIDE RECORDS SUMMARY | 2024-09-04 14:21 | XMS_ITS | Clinical Summary ---
Author Organization [facility] [employer] Address [address] [place] [address] Care Team Providers Care Wire Drawing Setter Name Role Phone Kaye Pendleton PA-C Primary Care Provider [phone] Source Comments [facility] [employer],non-owned Affiliates and Associated Physician Practices is amultiple site organization consisting of ambulatory clinics and hospital sitesin [place], [place], [place] and [place]. This disclosure is being madepursuant to the Care Everywhere program and may not contain all information available regarding this patient. Last updated 17.[employer] Allergies No known active allergies Medications * Be aware that medications may not be up to date on this document. Alwaysverify current medications with the patient. FLUoxetine (PROzac) 40 MG capsule Take 1 (one) capsule by mouth once daily 3 Active fluticasone propionate (Flonase) 50 MCG/ACT nasal spray St[place]al 1 (one) spray into each nostril once daily 3 Active norethindrone (Ortho Micronor; Nor-Qd; Carlie; Eulalia; Lucía-Be; Thi; Jolivette) 0.35 MG tablet Take 1 (one) tablet by mouth as directed 3 Active ferrous sulfate 325 (65 FE) MG tablet Take 1 (one) tablet by mouth 2 times daily Active albuterol (Proventil;Vent desi) (2.5 MG/3ML) 0.083% nebulizer solution Inhale 2.5 (two and one-half) mg by mouth as directed Active ibuprofen (Motrin) 600 MG tabletIndicatio ns:Multiple thyroid nodules Take 1 (one) tablet by mouth every 6 hours 20 tablet 4 Active levothyroxine (Synthroid) 200 MCG tablet Take 1 (one) tablet by mouth daily before breakfast Active Synthroid 25 MCG tablet Take 1 (one) tablet by mouth once daily 4 Active cetirizine (ZyrTEC) 10 MG tablet Take 1 (one) tablet by mouth once daily 4 Active Active Problems Problem Noted Date Diagnosed Date Thyroid cancer 04/19/2023 Multiple thyroid nodules 09/16/2022 Immunizations Immunization Administration Dates Next Due COVID PFIZER 12+YR 30MCG/0.3mL 11/30/2022 Covid Pfizer primary monoval ent 12+ yr 0.3mL Purple [...] PNEUMOCOCCAL PPSV23 02/21/2019 PNEUMOCOCCAL PPV VACCINE 02/25/2019 covID PFIZER BIVALENT 5Y-11Y 10MCG/0.2ML 01/21/2022 Family History Medical [...] more drinks on one occasion? Never 03/16/2023 Comments No Sex and Gender Information Value Date Recorded Sex Assigned at Not on file Legal Sex Female 9:27 PM CDT Gender Identity Not on file Sexual Orientation Not on file Last Filed Vital Signs Vital Sign Reading Time Taken Comments Blood Pressure 130/83 09/27/2023 3:16 PM CDT Pulse 77 09/27/2023 3:16 PM CDT Temperature 36.8 C (98.2 F) 03/17/2023 7:56 AM LINOLEUM FLOOR LAYER Respiratory Rate 18 03/17/2023 7:56 AM LINOLEUM FLOOR LAYER Oxygen Saturation 98% 09/27/2023 3:16 PM CDT Inhaled Oxygen Concentration - - Weight 149.2 kg (329 lb) 09/27/2023 3:16 PM CDT Height 172.7 cm (5' 8) 09/27/2023 3:16 PM CDT Body Mass Index 50.02 09/27/2023 3:16 PM CDT Plan of Treatment Upcoming Encounters Date Type Department Care Team (Late st Contact Info) Description 10/02/2024 12:45 PM CDT Office Visit [facility] [facility], [place] [address] Loki John MD [address] [place] [address] [place] [phone] Health Maintenance Due Date Last Done Comments COLON MONITORING 1972 COLONOSCOPY - COLON CA SCREENING 1972 CT COLONOGRAPHY - COLON CA SCREENING 1972 FIT - COLON CA SCREENING 1972 FLEX SIG - COLON CA SCREENING 1972 LIPID TESTING 1972 MAMMOGRAM 1972 HIV SCREENING 10/18/1987 HEPATITIS C SCREENING 10/13/1990 DTAP/TDAP/TD VACCINES (1 - Tdap) 10/18/1991 HEPATITIS B VACCINE (1 of 3 - 19+ 3-dose series) 10/18/1991 PAP SMEAR 1993 PNEUMOCOCCAL VACCINE 50+ (2 of 2 - PCV) 2022 02/25/2019, 02/21/2019 ZOSTER VACCINE (1 of 2) 2022 COVID-19 VACCINE (6 - season) 2023 11/30/2022, 01/21/2022, 01/21/2022, Additional history exists DEPRESSION SCREENING 02/21/2024 INFLUENZA VACCINE (#1) 2024 , 01/21/2022, 01/21/2022, Additional history exists SCREENING FOR DIABETES 03/06/2026 03/06/2023 COLOGUARD (AGES 45-75) - COLON CA SCREENING 08/27/2026 08/28/2023 Colorectal Cancer Screening 08/27/2026 HIB VACCINE Aged Out 02/25/2019 No longer eligi ble based on patient's age to complete this topic HPV VACCINE Aged Out No longer eligi ble based on patient's age to complete this topic MENINGOCOCCAL (Group B) VACCINE SHARED DECISION-MAKING Aged Out No longer eligible based on patient's age to complete this topic MENINGOCOCCAL GROUPS A/C/Y/W VACCINE Aged Out No longer eligible based on patient's age to complete this topic Procedures Procedure Name Priority Date/Time Associated Diagnosis Comments BASIC METABOLIC PANEL (CALCIUM TOTAL) Routine 03/06/2023 12:41 PM LINOLEUM FLOOR LAYER Pre-op evaluation from Last 3 Months or Most Recently Relevant to Health Maintenance Results * (ABNORMAL) BASIC METABOLIC PANEL (CALCIUM TOTAL) (03/06/2023 12:41 PM LINOLEUM FLOOR LAYER) BUN 16 7 - 26 mg/dL 03/06/2023 1:27 PM [facility]OLEUM FLOOR LAYER [facility] Creatinine 0.91 0.56 - 0.96 mg/dL 03/06/2023 1:27 PM [facility] Sodium 140 136 - 145 mmol/L 03/06/2023 1:27 PM [facility] Potassium 4.1 3.5 - 4.5 mmol/L 03/06/2023 1:27 PM [facility] Chloride 108(H) 98 - 107 mmol/L 03/06/2023 1:27 PM [facility] CO2 25 22 - 29 mmol/L 03/06/2023 1:27 PM [facility] Glucose 82 70 - 115 mg/dL 03/06/2023 1:27 PM [facility] Calcium 9.1 8.4 - 10.2 mg/dL 03/06/2023 1:27 PM [facility] Anion Gap 7 6 - 16 03/06/2023 1:27 PM [facility] BUN/Creatinine Ratio 18 7 - 23 03/06/2023 1:27 PM [facility] Osmolality Calculated 290 275 - 295 mOsm/kg 03/06/2023 1:27 PM [facility] eGFR by CKD-EPI 77(L) >=90 mL/min/1.7 3 m2 03/06/2023 1:27 PM [facility] Blood BLOOD SPECIMEN / Unknown Lab Venipuncture / Unknown 03/06/2023 12:41 PM [facility] 03/06/2023 12:58 PM [facility] Divya Carter JUNIOR DESIGNER-OBSERVATION NURSE LAB - CHEMISTRY O RDERABLES Final Result [facility] [address] [place] [address], [facility] [phone] from Last 3 Months or Most Recently Relevant to Health Maintenance Insurance CHRISTOPHER Advance Directives * Full Code (Latest Code Status on File) Date Activated Date Inactivated Comments 03/16/2023 1:17 PM 03/17/2023 11:57 AM Care Teams Wire Drawing Setter Relationship Specialty Start Date End Date Kaye Pendleton PA-C [address] [place] [phone] PCP - General Physician Fifth Grade Teacher 09/08/22
[2024-09-04 16:02] LABS: Thyroid Stimulating Hormone 8.350 uIU/mL (0.465-4.680)
[2024-09-05 16:08] LABS: Thyroglobulin by IMA YES YES
== END 2024-09-04 14:15 | disposition home or self-care (01) ==
LOC: ANHLAB 14:15
PROVIDERS: PCP Nurse Practitioner; Visit Provider Internal Medicine
DX: C73 Malignant neoplasm of thyroid gland (principal); E89.0 Postprocedural hypothyroidism
CPT/HCPCS: 36415; 84432; 84443; 86800

== ENCOUNTER 2024-09-04 14:55 | Outpatient (CLI) | payer BC, SELFPAY ==
--- NOTE | ~2024-09-04 | US_ITS ---
US soft tissue head and neck 09/04/2024 15:22 Indication: Papillary thyroid cancer. Procedure: High-resolution of the neck soft tissues Comparison: Ultrasound dated 08/25/2022 Findings: There are no pathologically enlarged lymph nodes of the neck. Impression: 1: No cervical lymphadenopathy. Reviewed, dictated and finalized at location B. Impression: 1: No cervical lymphadenopathy.
== END 2024-09-04 14:56 | disposition home or self-care (01) ==
LOC: MICIMG 14:55
PROVIDERS: PCP Nurse Practitioner; Visit Provider Internal Medicine
DX: C73 Malignant neoplasm of thyroid gland (principal); E89.0 Postprocedural hypothyroidism
CPT/HCPCS: 76536

== ENCOUNTER 2024-11-28 16:11 | Outpatient (CLI) | payer BC, SELFPAY ==
--- NOTE | ~2024-11-28 | MM_ITS ---
EXAMINATION: MM screening little BI w que HISTORY: Screening TECHNIQUE: Craniocaudal and mediolateral oblique 3-D tomosynthesis images were obtained and synthetic 2-D images were generated. CAD analysis was submitted and interpreted. COMPARISON: Comparison to multiple prior studies sequentially, with oldest reviewed study dated , 07/05/2018 BREAST PARENCHYMAL COMPOSITION: There are scattered areas of fibroglandular density. FINDINGS: There is no evidence of suspicious mass, calcification, or architectural distortion to suggest malignancy in either breast. IMPRESSION: 1. No mammographic evidence of malignancy. 2. Recommend routine screening mammography in one year. BI-RADS Category 1: Negative Reviewed, dictated and finalized at location B.
== END 2024-11-28 16:12 | disposition home or self-care (01) ==
LOC: ANHFOHIMG 16:12
PROVIDERS: PCP Nurse Practitioner; Visit Provider Nurse Practitioner Family
DX: Z12.31 Encounter for screening mammogram for malignant neoplasm of breast (principal)
CPT/HCPCS: 77063; 77067